=== PATIENT | female | born 1935 | race Caucasian/White ===

== ENCOUNTER 2017-12-15 21:03 | Inpatient (IN) | payer MEDICARE, OTHER ==
[2017-12-15] MEDS ORDERED: Sodium Chloride 0.9% 10 ML Syringe FLUSH PRN (21:12)
[2017-12-15] MEDS ORDERED: Sodium Chloride 0.9% 2.5 ML Syringe FLUSH PRN (21:12)
[2017-12-15] MEDS ORDERED: Albuterol/Ipratropium 3.0-0.5 MG/3 ML Neb Soln NEB ONE (21:15)
[2017-12-15] MEDS ORDERED: Sodium Chloride 0.9% 1,000 ML IV SCH (21:15)
--- NOTE | 2017-12-15 21:16 | EDM.PDOC ---
ED HPI GENERAL MEDICAL PROBLEM - General Chief Complaint: Respiratory Problem Stated Complaint: SHORT OF BREATH/DEHYDRATED Time Seen by Provider: 12/15/17 21:08 - History of Present Illness INITIAL COMMENTS - FREE TEXT/NARRATIVE: HISTORY AND PHYSICAL: History of present illness: Patient's an 82-year-old female who presents with concern of shortness of breath and cold symptoms over last 2-3 days she states she has some chronic intermittent shortness of breath which he uses an inhaler this is been challenging per family and this is usually only at night. She denies any fever she denies chest pain abdominal pain or other concern vomiting or diarrhea family was also concerned about possible dehydration. Review of systems: As per history of present illness and below otherwise all systems reviewed and negative. Past medical history: As per history of present illness and as reviewed below otherwise noncontributory. Surgical history: As per history of present illness and as reviewed below otherwise noncontributory. Social history: No reported history of drug or alcohol abuse. Family history: As per history of present illness and as reviewed below otherwise noncontributory. Physical exam: HEENT: Atraumatic, normocephalic, pupils reactive, negative for conjunctival pallor or scleral icterus, mucous membranes dry, throat clear, neck supple, nontender, trachea midline. Lungs: Coarse bilaterally with occasional rhonchi and end expiratory wheezing breath sounds equal bilaterally, chest nontender. Heart: S1S2, irregular negative for clicks, rubs, or JVD. Abdomen: Soft, nondistended, nontender. Negative for masses or hepatosplenomegaly. Negative for costovertebral tenderness. Pelvis: Stable nontender. Genitourinary: Deferred. Rectal: Deferred. Extremities: Atraumatic, negative for cords or calf pain. Neurovascular unremarkable. Neuro: Awake, alert, oriented. Follows commands and moves all extremities limited but grossly nonfocal exam Diagnostics: CBC CMP troponin blood culture 2 influenza screen UA urine culture chest x-ray EKG Therapeutics: IV O2 monitor albuterol ipratropium nebulizer Impression: #1 dyspnea #2 generalized weakness #3 dehydration #4 atrial fibrillation with rapid ventricular response #5 history of lymphoma Definitive disposition and diagnosis as appropriate pending reevaluation and review of above. lower abdomen Pain Score (Numeric/FACES): 6 - Related Data Allergies Allergy/AdvReac Type Severity Reaction Status Date / Time No Known Allergies Allergy Verified 12/15/17 21:12 Home Meds: Home Meds Calcium Carbonate [Calcium] 1 tab PO BID 12/15/17 [History] Doxepin [SINEquan] 50 mg PO DAILY 12/15/17 [History] FLUoxetine [PROzac] 25 mg PO DAILY 12/15/17 [History] Metoprolol Succinate [Toprol XL] 25 mg PO DAILY 12/15/17 [History] Warfarin [Coumadin] 5 mg PO DAILY 12/15/17 [History] atorvaSTATin [Lipitor] 20 mg PO DAILY 12/15/17 [History] ED ROS GENERAL - Review of Systems Review Of Systems: ROS reveals no pertinent complaints other than HPI. ED EXAM, GENERAL - Physical Exam Exam: Not Obtained (See dictation) Course - Vital Signs Last Recorded V/S: Last Vital Signs Temp 37.1 C 12/15/17 22:57 Pulse 90 12/15/17 22:57 Resp 28 H 12/15/17 22:57 BP 119/70 12/15/17 22:57 Pulse Ox 96 12/15/17 22:57 - Orders/Labs/Meds Orders: Active Orders 24 hr Category Date Time Status Cardiac Monitoring [RC] . DIRECTED Care 12/15/17 21:11 Active EKG Documentation Completion [RC] STAT Care 12/15/17 21:11 Active Oxygen Therapy, ED [RC] ASDIRECTED Care 12/15/17 21:11 Active Pulse Oximetry [RC] ASDIRECTED Care 12/15/17 21:11 Active RT Aerosol Therapy [RC] ASDIRECTED Care 12/15/17 21:15 Active Chest 1V Frontal [CR] Stat Exams 12/15/17 21:11 Taken CULTURE BLOOD [BC] Stat Lab 12/15/17 21:25 Received CULTURE BLOOD [BC] Stat Lab 12/15/17 21:25 Received CULTURE URINE [RM] Stat Lab 12/15/17 22:15 Ordered INFLUENZA A+B AG SCREEN [RM] Stat Lab 12/15/17 22:15 Ordered UA W/MICROSCOPIC [URIN] Stat Lab 12/15/17 22:15 Ordered Sodium Chloride 0.9% [Normal Saline] 1,000 ml Med 12/15/17 21:15 Active IV STAT Sodium Chloride 0.9% [Saline Flush] Med 12/15/17 21:12 Active 10 ml FLUSH ASDIRECTED PRN Sodium Chloride 0.9% [Saline Flush] Med 12/15/17 21:12 Active 2.5 ml FLUSH ASDIRECTED PRN Blood Culture x2 Reflex Set [OM.PC] Stat Oth 12/15/17 21:11 Ordered Saline Lock Insert [OM.PC] Stat Oth 12/15/17 21:11 Ordered Medication Orders Sodium Chloride (Normal Saline) 1,000 mls @ 125 mls/hr IV STAT KELLEY Last Admin: 12/15/17 21:25 Dose: 125 mls/hr Sodium Chloride (Saline Flush) 10 ml FLUSH ASDIRECTED PRN PRN Reason: Keep Vein Open Sodium Chloride (Saline Flush) 2.5 ml FLUSH ASDIRECTED PRN PRN Reason: Keep Vein Open Labs: Laboratory Tests 12/15/17 12/15/17 12/15/17 Range/Units 21:25 21:25 21:25 WBC 5.75 (4.0-11.0) K/uL RBC 5.23 (4.30-5.90) M/uL Hgb 16.1 H (12.0-16.0) g/dL Hct 48.6 H (36.0-46.0) % MCV 92.9 (80.0-98.0) fL MCH 30.8 (27.0-32.0) pg MCHC 33.1 (31.0-37.0) g/dL RDW Std Deviation 47.6 (28.0-62.0) fl RDW Coeff of Xiomy 14 (11.0-15.0) % Plt Count 184 (150-400) K/uL MPV 10.00 (7.40-12.00) fL Neut % (Auto) 59.4 (48.0-80.0) % Lymph % (Auto) 22.6 (16.0-40.0) % [place] % (Auto) 17.0 H (0.0-15.0) % Eos % (Auto) 0.3 (0.0-7.0) % Baso % (Auto) 0.7 (0.0-1.5) % Neut # (Auto) 3.4 (1.4-5.7) K/uL Lymph # (Auto) 1.3 (0.6-2.4) K/uL [place] # (Auto) 1.0 H (0.0-0.8) K/uL Eos # (Auto) 0.0 (0.0-0.7) K/uL Baso # (Auto) 0.0 (0.0-0.1) K/uL Nucleated RBC % 0.0 /100WBC Nucleated RBCs # 0 K/uL INR 1.97 Sodium 133 L (136-145) mmol/L Potassium 4.1 (3.5-5.1) mmol/L Chloride 98 (98-107) mmol/L Carbon Dioxide 25.0 (21.0-32.0) mmol/L BUN 18 (7.0-18.0) mg/dL Creatinine 1.1 H (0.6-1.0) mg/dL Est Cr Clr Drug Dosing 36.28 mL/min Estimated GFR (MDRD) 47.4 ml/min Glucose 144 H (74-106) mg/dL Calcium 9.0 (8.5-10.1) mg/dL Total Bilirubin 0.7 (0.2-1.0) mg/dL AST 33 (15-37) IU/L ALT 23 (14-63) IU/L Alkaline Phosphatase 154 H (46-116) U/L Troponin I < 0.050 (0.000-0.056) ng/mL B-Natriuretic Peptide (<100) PG/ML Total Protein 7.4 (6.4-8.2) g/dL Albumin 3.9 (3.4-5.0) g/dL Globulin 3.5 (2.0-3.5) g/dL Albumin/Globulin Ratio 1.1 L (1.3-2.8) Urine Color Urine Appearance Urine pH (5.0-8.0) Ur Specific [place] (1.001-1.035) Urine Protein (NEGATIVE) mg/dL Urine Glucose (UA) (NEGATIVE) mg/dL Urine Ketones (NEGATIVE) mg/dL Urine Occult Blood (NEGATIVE) Urine Nitrite (NEGATIVE) Urine Bilirubin (NEGATIVE) Urine Urobilinogen (<2.0) EU/dL Ur Leukocyte Esterase (NEGATIVE) Urine RBC (0-2/HPF) Urine WBC (0-5/HPF) Ur Epithelial Cells (NONE-FEW) Urine Bacteria (NEGATIVE) 03/31/18 03/31/18 Range/Units 21:25 22:15 WBC (4.0-11.0) K/uL RBC (4.30-5.90) M/uL Hgb (12.0-16.0) g/dL Hct (36.0-46.0) % MCV (80.0-98.0) fL MCH (27.0-32.0) pg MCHC (31.0-37.0) g/dL RDW Std Deviation (28.0-62.0) fl RDW Coeff of Xiomy (11.0-15.0) % Plt Count (150-400) K/uL MPV (7.40-12.00) fL Neut % (Auto) (48.0-80.0) % Lymph % (Auto) (16.0-40.0) % [place] % (Auto) (0.0-15.0) % Eos % (Auto) (0.0-7.0) % Baso % (Auto) (0.0-1.5) % Neut # (Auto) (1.4-5.7) K/uL Lymph # (Auto) (0.6-2.4) K/uL [place] # (Auto) (0.0-0.8) K/uL Eos # (Auto) (0.0-0.7) K/uL Baso # (Auto) (0.0-0.1) K/uL Nucleated RBC % /100WBC Nucleated RBCs # K/uL INR Sodium (136-145) mmol/L Potassium (3.5-5.1) mmol/L Chloride (98-107) mmol/L Carbon Dioxide (21.0-32.0) mmol/L BUN (7.0-18.0) mg/dL Creatinine (0.6-1.0) mg/dL Est Cr Clr Drug Dosing mL/min Estimated GFR (MDRD) ml/min Glucose (74-106) mg/dL Calcium (8.5-10.1) mg/dL Total Bilirubin (0.2-1.0) mg/dL AST (15-37) IU/L ALT (14-63) IU/L Alkaline Phosphatase (46-116) U/L Troponin I (0.000-0.056) ng/mL B-Natriuretic Peptide 187 H (<100) PG/ML Total Protein (6.4-8.2) g/dL Albumin (3.4-5.0) g/dL Globulin (2.0-3.5) g/dL Albumin/Globulin Ratio (1.3-2.8) Urine Color DARK YELLOW Urine Appearance HAZY Urine pH 5.0 (5.0-8.0) Ur Specific [place] >= 1.030 (1.001-1.035) Urine Protein TRACE (NEGATIVE) mg/dL Urine Glucose (UA) NEGATIVE (NEGATIVE) mg/dL Urine Ketones TRACE H (NEGATIVE) mg/dL Urine Occult Blood NEGATIVE (NEGATIVE) Urine Nitrite NEGATIVE (NEGATIVE) Urine Bilirubin NEGATIVE (NEGATIVE) Urine Urobilinogen 0.2 (<2.0) EU/dL Ur Leukocyte Esterase MODERATE (NEGATIVE) Urine RBC 1-2 (0-2/HPF) Urine WBC 3-5 (0-5/HPF) Ur Epithelial Cells FEW (NONE-FEW) Urine Bacteria FEW (NEGATIVE) Meds: Medications Generic Name Dose Route Start Last Admin Trade Name Walt PRN Reason Stop Dose Admin Sodium Chloride 1,000 mls @ 125 mls/hr 12/15/17 21:15 12/15/17 21:25 Normal Saline IV 125 mls/hr STAT KELLEY Administration Sodium Chloride 10 ml 12/15/17 21:12 Saline Flush FLUSH ASDIRECTED PRN Keep Vein Open Sodium Chloride 2.5 ml 12/15/17 21:12 Saline Flush FLUSH ASDIRECTED PRN Keep Vein Open Discontinued Medications Generic Name Dose Route Start Last Admin Trade Name Walt PRN Reason Stop Dose Admin Albuterol/Ipratropium 3 ml 12/15/17 21:15 12/15/17 21:22 Duoneb 3.0-0.5 Mg/3 Ml NEB 12/15/17 21:16 3 ml ONETIME ONE Administration Diltiazem HCl 20 mg 12/15/17 22:48 12/15/17 22:52 Diltiazem IVPUSH 12/15/17 22:49 20 mg ONETIME ONE Administration Diltiazem HCl Confirm 12/15/17 22:47 12/15/17 22:53 Diltiazem Administered 12/15/17 22:48 Not Given Dose 25 mg .ROUTE .STK-MED ONE Departure - Departure Time of Disposition: 23:03 Disposition: Refer to Observation Condition: Fair Clinical Impression: Dyspnea, Fibrillation, atrial, History of lymphoma - Discharge Information Forms: ED Department Discharge - My Orders Last 24 Hours: My Active Orders 12/15/17 21:11 Cardiac Monitoring [RC] . DIRECTED EKG Documentation Completion [RC] STAT Oxygen Therapy, ED [RC] ASDIRECTED Pulse Oximetry [RC] ASDIRECTED Chest 1V Frontal [CR] Stat Blood Culture x2 Reflex Set [OM.PC] Stat Saline Lock Insert [OM.PC] Stat 12/15/17 21:12 Sodium Chloride 0.9% [Saline Flush] 10 ml FLUSH ASDIRECTED PRN Sodium Chloride 0.9% [Saline Flush] 2.5 ml FLUSH ASDIRECTED PRN 12/15/17 21:15 RT Aerosol Therapy [RC] ASDIRECTED Sodium Chloride 0.9% [Normal Saline] 1,000 ml IV STAT 12/15/17 21:25 CULTURE BLOOD [BC] Stat CULTURE BLOOD [BC] Stat 12/15/17 22:15 CULTURE URINE [RM] Stat INFLUENZA A+B AG SCREEN [RM] Stat UA W/MICROSCOPIC [URIN] Stat - Assessment/Plan Last 24 Hours: My Active Orders 12/15/17 21:11 Cardiac Monitoring [RC] . DIRECTED EKG Documentation Completion [RC] STAT Oxygen Therapy, ED [RC] ASDIRECTED Pulse Oximetry [RC] ASDIRECTED Chest 1V Frontal [CR] Stat Blood Culture x2 Reflex Set [OM.PC] Stat Saline Lock Insert [OM.PC] Stat 12/15/17 21:12 Sodium Chloride 0.9% [Saline Flush] 10 ml FLUSH ASDIRECTED PRN Sodium Chloride 0.9% [Saline Flush] 2.5 ml FLUSH ASDIRECTED PRN 12/15/17 21:15 RT Aerosol Therapy [RC] ASDIRECTED Sodium Chloride 0.9% [Normal Saline] 1,000 ml IV STAT 12/15/17 21:25 CULTURE BLOOD [BC] Stat CULTURE BLOOD [BC] Stat 12/15/17 22:15 CULTURE URINE [RM] Stat INFLUENZA A+B AG SCREEN [RM] Stat UA W/MICROSCOPIC [URIN] Stat
[2017-12-15 21:56] LABS: CHLORIDE,CL 98 mmol/L (98-107); SODIUM,NA 133 mmol/L (136-145)
[2017-12-15] MEDS ORDERED: Diltiazem 25 MG/5 ML SDV ONE (22:47)
[2017-12-15] MEDS ORDERED: Diltiazem 25 MG/5 ML SDV IVPUSH ONE (22:48)
[2017-12-15] MEDS ORDERED: Acetaminophen 325 MG Tab PO PRN (23:38)
[2017-12-15] MEDS ORDERED: predniSONE 20 MG Tab PO ONE (23:41)
[2017-12-15] MEDS ORDERED: Pantoprazole 40 MG Vial IVPUSH ONE (23:41)
--- NOTE | 2017-12-15 23:48 | PCM.HP ---
H&P History of Present Illness - General Admit Problem/Dx: Admission Diagnosis/Problem Admission Diagnosis/Problem Dyspnea - History of Present Illness Initial Comments - Free Text/Narative: 82 yo female with pmh of nonhodgkin's lymphoma, atrial fibrillation on anticoagulation who presents to the ED with complaint of cough and wheezing. She also reported an episode neck pain that radiates to the arm. She reports epigastric pain as well. She does have some shortness of breath with walking. She denies any fevers or blood in stool. In the ED she was noted to have a heart rate of 120-130s bpm which decreased to the 80s with 20mg of diltiazem. lower abdomen Pain Score (Numeric/FACES): 6 - Related Data Allergies/Adverse Reactions: Allergies Allergy/AdvReac Type Severity Reaction Status Date / Time No Known Allergies Allergy Verified 12/15/17 21:12 Home Medications: Home Meds Calcium Carbonate [Calcium] 1 tab PO BID 12/15/17 [History] Doxepin [SINEquan] 50 mg PO DAILY 12/15/17 [History] FLUoxetine [PROzac] 25 mg PO DAILY 12/15/17 [History] Metoprolol Succinate [Toprol XL] 25 mg PO DAILY 12/15/17 [History] Warfarin [Coumadin] 5 mg PO DAILY 12/15/17 [History] atorvaSTATin [Lipitor] 20 mg PO DAILY 12/15/17 [History] Past Medical History HEENT History: Reports: Impaired Vision Cardiovascular History: Reports: Afib, High Cholesterol, Hypertension [employer] History: Reports: Endocrine/Metabolic History: Reports: Other (See Below) Other Endocrine/Metabolic History: parathyroid Oncologic (Cancer) History: Reports: Basal Cell Carcinoma, Lymphoma, Squamous Cell Carcinoma Other Oncologic History: currenlty has lymphoma Dermatologic History: Reports: Other (See Below) - Infectious Disease History Infectious Disease History: Reports: Measles - Past Surgical History GI Surgical History: Reports: Appendectomy Female Surgical History: Reports: Hysterectomy Social & Family History - Family History Family Medical History: Noncontributory - Tobacco Use Smoking Status *Q: Never Smoker Second Hand Smoke Exposure: No - Caffeine Use Caffeine Use: Reports: Coffee - Recreational Drug Use Recreational Drug Use: No H&P Review of Systems - Review of Systems: Review Of Systems: ROS reveals no pertinent complaints other than HPI. Exam - Exam Exam: See Below - Vital Signs Vital Signs: Last Vital Signs Temp 37.1 C 12/15/17 22:57 Pulse 90 12/15/17 22:57 Resp 28 H 12/15/17 22:57 BP 119/70 12/15/17 22:57 Pulse Ox 96 12/15/17 22:57 Weight: 66.224 kg - Exam General: Alert, Oriented Neck: Supple, Trachea Midline Lungs: Normal Respiratory Effort, Wheezing Cardiovascular: Regular Rate, Regular Rhythm GI/Abdominal Exam: Normal Bowel Sounds, Soft, Non-Tender, No Distention Extremities: Non-Tender - Patient Data Lab Results Last 24 hrs: Laboratory Results - last 24 hr 12/15/17 12/15/17 12/15/17 Range/Units 21:25 21:25 21:25 WBC 5.75 (4.0-11.0) K/uL RBC 5.23 (4.30-5.90) M/uL Hgb 16.1 H (12.0-16.0) g/dL Hct 48.6 H (36.0-46.0) % MCV 92.9 (80.0-98.0) fL MCH 30.8 (27.0-32.0) pg MCHC 33.1 (31.0-37.0) g/dL RDW Std Deviation 47.6 (28.0-62.0) fl RDW Coeff of Xiomy 14 (11.0-15.0) % Plt Count 184 (150-400) K/uL MPV 10.00 (7.40-12.00) fL Neut % (Auto) 59.4 (48.0-80.0) % Lymph % (Auto) 22.6 (16.0-40.0) % [place] % (Auto) 17.0 H (0.0-15.0) % Eos % (Auto) 0.3 (0.0-7.0) % Baso % (Auto) 0.7 (0.0-1.5) % Neut # (Auto) 3.4 (1.4-5.7) K/uL Lymph # (Auto) 1.3 (0.6-2.4) K/uL [place] # (Auto) 1.0 H (0.0-0.8) K/uL Eos # (Auto) 0.0 (0.0-0.7) K/uL Baso # (Auto) 0.0 (0.0-0.1) K/uL Nucleated RBC % 0.0 /100WBC Nucleated RBCs # 0 K/uL INR 1.97 Sodium 133 L (136-145) mmol/L Potassium 4.1 (3.5-5.1) mmol/L Chloride 98 (98-107) mmol/L Carbon Dioxide 25.0 (21.0-32.0) mmol/L BUN 18 (7.0-18.0) mg/dL Creatinine 1.1 H (0.6-1.0) mg/dL Est Cr Clr Drug Dosing 36.28 mL/min Estimated GFR (MDRD) 47.4 ml/min Glucose 144 H (74-106) mg/dL Calcium 9.0 (8.5-10.1) mg/dL Total Bilirubin 0.7 (0.2-1.0) mg/dL AST 33 (15-37) IU/L ALT 23 (14-63) IU/L Alkaline Phosphatase 154 H (46-116) U/L Troponin I < 0.050 (0.000-0.056) ng/mL B-Natriuretic Peptide (<100) PG/ML Total Protein 7.4 (6.4-8.2) g/dL Albumin 3.9 (3.4-5.0) g/dL Globulin 3.5 (2.0-3.5) g/dL Albumin/Globulin Ratio 1.1 L (1.3-2.8) Urine Color Urine Appearance Urine pH (5.0-8.0) Ur Specific [place] (1.001-1.035) Urine Protein (NEGATIVE) mg/dL Urine Glucose (UA) (NEGATIVE) mg/dL Urine Ketones (NEGATIVE) mg/dL Urine Occult Blood (NEGATIVE) Urine Nitrite (NEGATIVE) Urine Bilirubin (NEGATIVE) Urine Urobilinogen (<2.0) EU/dL Ur Leukocyte Esterase (NEGATIVE) Urine RBC (0-2/HPF) Urine WBC (0-5/HPF) Ur Epithelial Cells (NONE-FEW) Urine Bacteria (NEGATIVE) 12/15/17 12/15/17 Range/Units 21:25 22:15 WBC (4.0-11.0) K/uL RBC (4.30-5.90) M/uL Hgb (12.0-16.0) g/dL Hct (36.0-46.0) % MCV (80.0-98.0) fL MCH (27.0-32.0) pg MCHC (31.0-37.0) g/dL RDW Std Deviation (28.0-62.0) fl RDW Coeff of Xiomy (11.0-15.0) % Plt Count (150-400) K/uL MPV (7.40-12.00) fL Neut % (Auto) (48.0-80.0) % Lymph % (Auto) (16.0-40.0) % [place] % (Auto) (0.0-15.0) % Eos % (Auto) (0.0-7.0) % Baso % (Auto) (0.0-1.5) % Neut # (Auto) (1.4-5.7) K/uL Lymph # (Auto) (0.6-2.4) K/uL [place] # (Auto) (0.0-0.8) K/uL Eos # (Auto) (0.0-0.7) K/uL Baso # (Auto) (0.0-0.1) K/uL Nucleated RBC % /100WBC Nucleated RBCs # K/uL INR Sodium (136-145) mmol/L Potassium (3.5-5.1) mmol/L Chloride (98-107) mmol/L Carbon Dioxide (21.0-32.0) mmol/L BUN (7.0-18.0) mg/dL Creatinine (0.6-1.0) mg/dL Est Cr Clr Drug Dosing mL/min Estimated GFR (MDRD) ml/min Glucose (74-106) mg/dL Calcium (8.5-10.1) mg/dL Total Bilirubin (0.2-1.0) mg/dL AST (15-37) IU/L ALT (14-63) IU/L Alkaline Phosphatase (46-116) U/L Troponin I (0.000-0.056) ng/mL B-Natriuretic Peptide 187 H (<100) PG/ML Total Protein (6.4-8.2) g/dL Albumin (3.4-5.0) g/dL Globulin (2.0-3.5) g/dL Albumin/Globulin Ratio (1.3-2.8) Urine Color DARK YELLOW Urine Appearance HAZY Urine pH 5.0 (5.0-8.0) Ur Specific [place] >= 1.030 (1.001-1.035) Urine Protein TRACE (NEGATIVE) mg/dL Urine Glucose (UA) NEGATIVE (NEGATIVE) mg/dL Urine Ketones TRACE H (NEGATIVE) mg/dL Urine Occult Blood NEGATIVE (NEGATIVE) Urine Nitrite NEGATIVE (NEGATIVE) Urine Bilirubin NEGATIVE (NEGATIVE) Urine Urobilinogen 0.2 (<2.0) EU/dL Ur Leukocyte Esterase MODERATE (NEGATIVE) Urine RBC 1-2 (0-2/HPF) Urine WBC 3-5 (0-5/HPF) Ur Epithelial Cells FEW (NONE-FEW) Urine Bacteria FEW (NEGATIVE) Result Diagrams: 12/15/17 21:25 12/15/17 21:25 Dat Results Last 24 hrs: Microbiology 12/15/17 22:15 Influenza Type A Antigen Screen - Final Nasopharyngeal Swab NEGATIVE INFLUENZA A VIRUS AG Influenza Type B Antigen Screen - Final NEGATIVE INFLUENZA B VIRUS AG Problem List Initiated/Reviewed/Updated: Yes Orders Last 24hrs: Active Orders 24 hr Category Date Time Status Patient Status [ADT] Stat ADT 12/15/17 23:04 Active Cardiac Monitoring [RC] . DIRECTED Care 12/15/17 21:11 Active EKG Documentation Completion [RC] STAT Care 12/15/17 21:11 Active Oxygen Therapy [RC] PRN Care 12/15/17 23:38 Active Oxygen Therapy, ED [RC] ASDIRECTED Care 12/15/17 21:11 Active Pulse Oximetry [RC] ASDIRECTED Care 12/15/17 21:11 Active RT Aerosol Therapy [RC] ASDIRECTED Care 12/15/17 21:15 Active RT Aerosol Therapy [RC] ASDIRECTED Care 12/15/17 23:39 Active Up ad Glo [RC] ASDIRECTED Care 12/15/17 23:38 Active VTE/DVT Education [RC] PER UNIT ROUTINE Care 12/15/17 23:38 Active Vital Signs [RC] Q4H Care 12/15/17 23:38 Active Regular Diet [DIET] Diet 12/15/17 Breakfast Active Chest 1V Frontal [CR] Stat Exams 12/15/17 21:11 Taken BASIC METABOLIC PANEL,BMP [CHEM] AM Lab 12/16/17 05:11 Ordered CBC W/O DIFF,HEMOGRAM [HEME] AM Lab 12/16/17 05:11 Ordered CULTURE BLOOD [BC] Stat Lab 12/15/17 21:25 Received CULTURE BLOOD [BC] Stat Lab 12/15/17 21:25 Received CULTURE URINE [RM] Stat Lab 12/15/17 22:15 Ordered INFLUENZA A+B AG SCREEN [RM] Stat Lab 12/15/17 22:15 Ordered TROPONIN I [CHEM] Q6H Lab 12/16/17 04:00 Ordered TROPONIN I [CHEM] Q6H Lab 12/16/17 10:00 Ordered UA W/MICROSCOPIC [URIN] Stat Lab 12/15/17 22:15 Ordered Acetaminophen [Tylenol] Med 12/15/17 23:38 Ordered 650 mg PO Q4H PRN Albuterol/Ipratropium [DuoNeb 3.0-0.5 MG/3 ML] Med 12/16/17 00:00 Ordered 3 ml NEB Q6HRRT Doxepin [SINEquan] Med 12/16/17 09:00 Ordered 50 mg PO DAILY FLUoxetine [PROzac] Med 12/16/17 09:00 Ordered 25 mg PO DAILY Metoprolol Succinate [Toprol XL] Med 12/16/17 09:00 Ordered 25 mg PO DAILY Pantoprazole [ProTONIX IV] Med 12/15/17 23:41 Once 40 mg IVPUSH NOW ONE Sodium Chloride 0.9% [Normal Saline] 1,000 ml Med 12/15/17 21:15 Active IV STAT Sodium Chloride 0.9% [Saline Flush] Med 12/15/17 21:12 Active 10 ml FLUSH ASDIRECTED PRN Sodium Chloride 0.9% [Saline Flush] Med 12/15/17 21:12 Active 2.5 ml FLUSH ASDIRECTED PRN Warfarin [Coumadin] Med 12/16/17 09:00 Ordered 5 mg PO DAILY atorvaSTATin [Lipitor] Med 12/16/17 09:00 Ordered 20 mg PO DAILY predniSONE Med 12/15/17 23:41 Once 40 mg PO ONETIME ONE Blood Culture x2 Reflex Set [OM.PC] Stat Oth 12/15/17 21:11 Ordered Saline Lock Insert [OM.PC] Stat Oth 12/15/17 21:11 Ordered Sequential Compression Device [OM.PC] Per Unit Routine Oth 12/15/17 23:38 Ordered Resuscitation Status Routine Resus Stat 12/15/17 23:38 Ordered Medication Orders Acetaminophen (Tylenol) 650 mg PO Q4H PRN PRN Reason: Pain (Mild 1-3)/fever Albuterol/Ipratropium (Duoneb 3.0-0.5 Mg/3 Ml) 3 ml NEB Q6HRRT KELLEY Atorvastatin Calcium (Lipitor) 20 mg PO DAILY [facility] Fluoxetine HCl (Prozac) 25 mg PO DAILY [facility] Sodium Chloride (Normal Saline) 1,000 mls @ 125 mls/hr IV STAT [facility] Last Admin: 12/15/17 21:25 Dose: 125 mls/hr Metoprolol Succinate (Toprol Xl) 25 mg PO DAILY [facility] Non-Formulary Medication (Doxepin [Sinequan]) 50 mg PO DAILY [facility] Pantoprazole Sodium (Protonix Iv) 40 mg IVPUSH NOW ONE Stop: 12/15/17 23:42 Prednisone (Prednisone) 40 mg PO ONETIME ONE Stop: 12/15/17 23:42 Sodium Chloride (Saline Flush) 10 ml FLUSH ASDIRECTED PRN PRN Reason: Keep Vein Open Sodium Chloride (Saline Flush) 2.5 ml FLUSH ASDIRECTED PRN PRN Reason: Keep Vein Open Warfarin Sodium (Coumadin) 5 mg PO DAILY [facility] Assessment/Plan Comment:: 82 yo female who presents with wheezing, chest pain and atrial fibrillation with RVR. Will observe overnight Acute bronchitis: treating with duonebs and prednisone Chest pain: trending cardiac enzymes will monitor on telemetry Atrial fibrillation: currently rate controlled after IV diltiazem
[2017-12-16] MEDS: Albuterol/Ipratropium 3.0-0.5 MG/3 ML Neb Soln NEB SCH ×4 (01:12→17:35)
[2017-12-16] MEDS ORDERED: guaiFENesin/Dextromethorphan 100-10 MG/5 ML Soln 10 ML Cup PO PRN (02:02)
[2017-12-16] MEDS: Sodium Chloride 0.9% 1,000 ML IV SCH ×2 (06:45→15:07)
[2017-12-16] MEDS ORDERED: Diltiazem 25 MG/5 ML SDV IVPUSH ONE (07:10)
[2017-12-16] MEDS ORDERED: Metoprolol Succinate 25 MG Tab.ER PO SCH (09:00)
[2017-12-16] MEDS: atorvaSTATin 20 MG Tab PO SCH (09:38)
[2017-12-16] MEDS: FLUoxetine 20 MG Cap PO SCH (09:38)
[2017-12-16] MEDS ORDERED: Warfarin 5 MG Tab PO SCH (14:00)
[2017-12-16] MEDS ORDERED: Metoprolol Succinate 25 MG Tab.ER PO ONE (14:17)
[2017-12-16] MEDS ORDERED: predniSONE 10 MG Tab PO ONE (14:19)
--- NOTE | 2017-12-16 14:24 | PCM.PN ---
- Review of Systems Systems Review Comment:: reports chest congestion is loosening, more productive cough, no chest pain - Patient Data Vitals - Most Recent: Last Vital Signs Temp 36.4 C 12/16/17 12:07 Pulse 97 12/16/17 12:07 Resp 18 12/16/17 12:07 BP 105/61 12/16/17 12:07 Pulse Ox 94 L 12/16/17 12:07 Weight - Most Recent: 66.224 kg I&O - Last 24 Hours: Intake & Output 12/15/17 12/16/17 12/16/17 22:59 06:59 14:59 Intake Total 1299 Output Total 600 Balance 699 Lab Results Last 24 Hours: Laboratory Results - last 24 hr 12/15/17 12/15/17 12/15/17 Range/Units 21:25 21:25 21:25 WBC 5.75 (4.0-11.0) K/uL RBC 5.23 (4.30-5.90) M/uL Hgb 16.1 H (12.0-16.0) g/dL Hct 48.6 H (36.0-46.0) % MCV 92.9 (80.0-98.0) fL MCH 30.8 (27.0-32.0) pg MCHC 33.1 (31.0-37.0) g/dL RDW Std Deviation 47.6 (28.0-62.0) fl RDW Coeff of Xiomy 14 (11.0-15.0) % Plt Count 184 (150-400) K/uL MPV 10.00 (7.40-12.00) fL Neut % (Auto) 59.4 (48.0-80.0) % Lymph % (Auto) 22.6 (16.0-40.0) % [place] % (Auto) 17.0 H (0.0-15.0) % Eos % (Auto) 0.3 (0.0-7.0) % Baso % (Auto) 0.7 (0.0-1.5) % Neut # (Auto) 3.4 (1.4-5.7) K/uL Lymph # (Auto) 1.3 (0.6-2.4) K/uL [place] # (Auto) 1.0 H (0.0-0.8) K/uL Eos # (Auto) 0.0 (0.0-0.7) K/uL Baso # (Auto) 0.0 (0.0-0.1) K/uL Nucleated RBC % 0.0 /100WBC Nucleated RBCs # 0 K/uL INR 1.97 Sodium 133 L (136-145) mmol/L Potassium 4.1 (3.5-5.1) mmol/L Chloride 98 (98-107) mmol/L Carbon Dioxide 25.0 (21.0-32.0) mmol/L BUN 18 (7.0-18.0) mg/dL Creatinine 1.1 H (0.6-1.0) mg/dL Est Cr Clr Drug Dosing 36.28 mL/min Estimated GFR (MDRD) 47.4 ml/min Glucose 144 H (74-106) mg/dL Calcium 9.0 (8.5-10.1) mg/dL Total Bilirubin 0.7 (0.2-1.0) mg/dL AST 33 (15-37) IU/L ALT 23 (14-63) IU/L Alkaline Phosphatase 154 H (46-116) U/L Troponin I < 0.050 (0.000-0.056) ng/mL B-Natriuretic Peptide (<100) PG/ML Total Protein 7.4 (6.4-8.2) g/dL Albumin 3.9 (3.4-5.0) g/dL Globulin 3.5 (2.0-3.5) g/dL Albumin/Globulin Ratio 1.1 L (1.3-2.8) Urine Color Urine Appearance Urine pH (5.0-8.0) Ur Specific Pep (1.001-1.035) Urine Protein (NEGATIVE) mg/dL Urine Glucose (UA) (NEGATIVE) mg/dL Urine Ketones (NEGATIVE) mg/dL Urine Occult Blood (NEGATIVE) Urine Nitrite (NEGATIVE) Urine Bilirubin (NEGATIVE) Urine Urobilinogen (<2.0) EU/dL Ur Leukocyte Esterase (NEGATIVE) Urine RBC (0-2/HPF) Urine WBC (0-5/HPF) Ur Epithelial Cells (NONE-FEW) Urine Bacteria (NEGATIVE) 12/15/17 12/15/17 12/16/17 Range/Units 21:25 22:15 04:15 WBC 4.48 (4.0-11.0) K/uL RBC 4.69 (4.30-5.90) M/uL Hgb 14.1 (12.0-16.0) g/dL Hct 44.2 (36.0-46.0) % MCV 94.2 (80.0-98.0) fL MCH 30.1 (27.0-32.0) pg MCHC 31.9 (31.0-37.0) g/dL RDW Std Deviation 48.6 (28.0-62.0) fl RDW Coeff of Xiomy 14 (11.0-15.0) % Plt Count 195 (150-400) K/uL MPV 10.00 (7.40-12.00) fL Neut % (Auto) (48.0-80.0) % Lymph % (Auto) (16.0-40.0) % [place] % (Auto) (0.0-15.0) % Eos % (Auto) (0.0-7.0) % Baso % (Auto) (0.0-1.5) % Neut # (Auto) (1.4-5.7) K/uL Lymph # (Auto) (0.6-2.4) K/uL [place] # (Auto) (0.0-0.8) K/uL Eos # (Auto) (0.0-0.7) K/uL Baso # (Auto) (0.0-0.1) K/uL Nucleated RBC % 0.0 /100WBC Nucleated RBCs # 0 K/uL INR Sodium (136-145) mmol/L Potassium (3.5-5.1) mmol/L Chloride (98-107) mmol/L Carbon Dioxide (21.0-32.0) mmol/L BUN (7.0-18.0) mg/dL Creatinine (0.6-1.0) mg/dL Est Cr Clr Drug Dosing mL/min Estimated GFR (MDRD) ml/min Glucose (74-106) mg/dL Calcium (8.5-10.1) mg/dL Total Bilirubin (0.2-1.0) mg/dL AST (15-37) IU/L ALT (14-63) IU/L Alkaline Phosphatase (46-116) U/L Troponin I (0.000-0.056) ng/mL B-Natriuretic Peptide 187 H (<100) PG/ML Total Protein (6.4-8.2) g/dL Albumin (3.4-5.0) g/dL Globulin (2.0-3.5) g/dL Albumin/Globulin Ratio (1.3-2.8) Urine Color DARK YELLOW Urine Appearance HAZY Urine pH 5.0 (5.0-8.0) Ur Specific Pep >= 1.030 (1.001-1.035) Urine Protein TRACE (NEGATIVE) mg/dL Urine Glucose (UA) NEGATIVE (NEGATIVE) mg/dL Urine Ketones TRACE H (NEGATIVE) mg/dL Urine Occult Blood NEGATIVE (NEGATIVE) Urine Nitrite NEGATIVE (NEGATIVE) Urine Bilirubin NEGATIVE (NEGATIVE) Urine Urobilinogen 0.2 (<2.0) EU/dL Ur Leukocyte Esterase MODERATE (NEGATIVE) Urine RBC 1-2 (0-2/HPF) Urine WBC 3-5 (0-5/HPF) Ur Epithelial Cells FEW (NONE-FEW) Urine Bacteria FEW (NEGATIVE) 12/16/17 12/16/17 12/16/17 Range/Units 04:15 04:15 11:15 WBC (4.0-11.0) K/uL RBC (4.30-5.90) M/uL Hgb (12.0-16.0) g/dL Hct (36.0-46.0) % MCV (80.0-98.0) fL MCH (27.0-32.0) pg MCHC (31.0-37.0) g/dL RDW Std Deviation (28.0-62.0) fl RDW Coeff of Xiomy (11.0-15.0) % Plt Count (150-400) K/uL MPV (7.40-12.00) fL Neut % (Auto) (48.0-80.0) % Lymph % (Auto) (16.0-40.0) % [place] % (Auto) (0.0-15.0) % Eos % (Auto) (0.0-7.0) % Baso % (Auto) (0.0-1.5) % Neut # (Auto) (1.4-5.7) K/uL Lymph # (Auto) (0.6-2.4) K/uL [place] # (Auto) (0.0-0.8) K/uL Eos # (Auto) (0.0-0.7) K/uL Baso # (Auto) (0.0-0.1) K/uL Nucleated RBC % /100WBC Nucleated RBCs # K/uL INR Sodium 137 (136-145) mmol/L Potassium 3.9 (3.5-5.1) mmol/L Chloride 101 (98-107) mmol/L Carbon Dioxide 22.8 (21.0-32.0) mmol/L BUN 15 (7.0-18.0) mg/dL Creatinine 1.0 (0.6-1.0) mg/dL Est Cr Clr Drug Dosing 39.90 mL/min Estimated GFR (MDRD) 53.0 ml/min Glucose 164 H (74-106) mg/dL Calcium 8.2 L (8.5-10.1) mg/dL Total Bilirubin (0.2-1.0) mg/dL AST (15-37) IU/L ALT (14-63) IU/L Alkaline Phosphatase (46-116) U/L Troponin I < 0.050 < 0.050 (0.000-0.056) ng/mL B-Natriuretic Peptide (<100) PG/ML Total Protein (6.4-8.2) g/dL Albumin (3.4-5.0) g/dL Globulin (2.0-3.5) g/dL Albumin/Globulin Ratio (1.3-2.8) Urine Color Urine Appearance Urine pH (5.0-8.0) Ur Specific Pep (1.001-1.035) Urine Protein (NEGATIVE) mg/dL Urine Glucose (UA) (NEGATIVE) mg/dL Urine Ketones (NEGATIVE) mg/dL Urine Occult Blood (NEGATIVE) Urine Nitrite (NEGATIVE) Urine Bilirubin (NEGATIVE) Urine Urobilinogen (<2.0) EU/dL Ur Leukocyte Esterase (NEGATIVE) Urine RBC (0-2/HPF) Urine WBC (0-5/HPF) Ur Epithelial Cells (NONE-FEW) Urine Bacteria (NEGATIVE) Dat Results Last 24 Hours: Microbiology 12/15/17 22:15 Influenza Type A Antigen Screen - Final Nasopharyngeal Swab NEGATIVE INFLUENZA A VIRUS AG Influenza Type B Antigen Screen - Final NEGATIVE INFLUENZA B VIRUS AG Med Orders - Current: Current Medications Acetaminophen (Tylenol) 650 mg PO Q4H PRN PRN Reason: Pain (Mild 1-3)/fever Albuterol/Ipratropium (Duoneb 3.0-0.5 Mg/3 Ml) 3 ml NEB Q6HRRT [facility] Last Admin: 12/16/17 11:44 Dose: 3 ml Atorvastatin Calcium (Lipitor) 20 mg PO DAILY [facility] Last Admin: 12/16/17 09:38 Dose: 20 mg Doxepin HCl (Sinequan) 50 mg PO BEDTIME [facility] Fluoxetine HCl (Prozac) 20 mg PO DAILY [facility] Last Admin: 12/16/17 09:38 Dose: 20 mg Guaifenesin/Dextromethorphan (Robitussin Dm) 10 ml PO Q6H PRN PRN Reason: Cough Sodium Chloride (Normal Saline) 1,000 mls @ 125 mls/hr IV ASDIRECTED [facility] Last Admin: 12/16/17 06:45 Dose: 125 mls/hr Metoprolol Succinate (Toprol Xl) 25 mg PO DAILY [facility] Last Admin: 12/16/17 10:25 Dose: 25 mg Sodium Chloride (Saline Flush) 10 ml FLUSH ASDIRECTED PRN PRN Reason: Keep Vein Open Sodium Chloride (Saline Flush) 2.5 ml FLUSH ASDIRECTED PRN PRN Reason: Keep Vein Open Warfarin Sodium (Coumadin) 5 mg PO DAILY@1400 [facility] Discontinued Medications Albuterol/Ipratropium (Duoneb 3.0-0.5 Mg/3 Ml) 3 ml NEB ONETIME ONE Stop: 12/15/17 21:16 Last Admin: 12/15/17 21:22 Dose: 3 ml Diltiazem HCl (Diltiazem) 20 mg IVPUSH ONETIME ONE Stop: 12/15/17 22:49 Last Admin: 12/15/17 22:52 Dose: 20 mg Diltiazem HCl (Diltiazem) Confirm Administered Dose 25 mg .ROUTE .STK-MED ONE Stop: 12/15/17 22:48 Last Admin: 12/15/17 22:53 Dose: Not Given Diltiazem HCl (Diltiazem) 10 mg IVPUSH STAT ONE Stop: 12/16/17 07:11 Last Admin: 12/16/17 07:31 Dose: 10 mg Fluoxetine HCl (Prozac) 25 mg PO DAILY [facility] Last Admin: 12/16/17 10:06 Dose: Not Given Sodium Chloride (Normal Saline) 1,000 mls @ 125 mls/hr IV STAT [facility] Last Admin: 12/15/17 21:25 Dose: 125 mls/hr Pantoprazole Sodium (Protonix Iv) 40 mg IVPUSH NOW ONE Stop: 12/15/17 23:42 Last Admin: 12/16/17 00:37 Dose: 40 mg Prednisone (Prednisone) 40 mg PO ONETIME ONE Stop: 12/15/17 23:42 Last Admin: 12/16/17 00:36 Dose: 40 mg - Exam General: Alert, Oriented Lungs: Clear to Auscultation, Normal Respiratory Effort Cardiovascular: Regular Rate, Regular Rhythm GI/Abdominal Exam: Soft, Non-Tender Extremities: Non-Tender, No Pedal Edema Skin: Warm, Dry, Intact - Problem List Review Problem List Initiated/Reviewed/Updated: Yes - My Orders Last 24 Hours: My Active Orders 12/15/17 23:38 Oxygen Therapy [RC] PRN Up ad Glo [RC] ASDIRECTED VTE/DVT Education [RC] PER UNIT ROUTINE Vital Signs [RC] Q4H Acetaminophen [Tylenol] 650 mg PO Q4H PRN Sequential Compression Device [OM.PC] Per Unit Routine Resuscitation Status Routine 12/15/17 23:39 RT Aerosol Therapy [RC] ASDIRECTED 12/15/17 23:52 Telemetry Monitoring [Cardiac Monitoring] [RC] Q8H 12/16/17 00:00 Albuterol/Ipratropium [DuoNeb 3.0-0.5 MG/3 ML] 3 ml NEB Q6HRRT 12/16/17 00:30 Sodium Chloride 0.9% [Normal Saline] 1,000 ml IV ASDIRECTED 12/16/17 02:02 Dextromethorphan/guaiFENesin [Robitussin DM] 10 ml PO Q6H PRN 12/16/17 09:00 Metoprolol Succinate [Toprol XL] 25 mg PO DAILY atorvaSTATin [Lipitor] 20 mg PO DAILY 12/16/17 09:20 FLUoxetine [PROzac] 20 mg PO DAILY 12/16/17 14:00 Warfarin [Coumadin] 5 mg PO DAILY@1400 12/16/17 14:17 Metoprolol Succinate [Toprol XL] 25 mg PO ONETIME ONE 12/16/17 21:00 Doxepin [SINEquan] 50 mg PO BEDTIME 12/17/17 09:00 Metoprolol Succinate [Toprol XL] 50 mg PO DAILY - Plan Plan:: 82 yo female who presents with wheezing, chest pain and atrial fibrillation with RVR. Acute bronchitis: treating with duonebs, prednisone, and azithromycin Chest pain: ACS ruled out with serial negative cardiac enzymes Atrial fibrillation: tachycardic this morning but after IV diltiazem is rate controlled, will increase metoprolol to 50mg daily, continue warfarin Dispo: likely home tomorrow.
[2017-12-16] MEDS: Azithromycin 250 MG Tab PO SCH (14:52)
[2017-12-16] MEDS ORDERED: Diltiazem 25 MG/5 ML SDV IVPUSH PRN (15:32)
[2017-12-16] MEDS: Doxepin 25 MG Cap PO SCH (21:00)
[2017-12-17] MEDS: Albuterol/Ipratropium 3.0-0.5 MG/3 ML Neb Soln NEB SCH ×3 (00:07→11:25)
[2017-12-17] MEDS: Sodium Chloride 0.9% 1,000 ML IV SCH ×2 (00:08→08:32)
[2017-12-17 06:14] LABS: CHLORIDE,CL 106 mmol/L (98-107); SODIUM,NA 139 mmol/L (136-145)
[2017-12-17] MEDS: atorvaSTATin 20 MG Tab PO SCH (08:34)
[2017-12-17] MEDS: FLUoxetine 20 MG Cap PO SCH (08:34)
[2017-12-17] MEDS: Metoprolol Succinate 25 MG Tab.ER PO SCH (08:35)
[2017-12-17] MEDS ORDERED: Magnesium Sulfate/Water 4 GM in Premix Bag 1 BAG IV ONE (08:36)
[2017-12-17] MEDS: predniSONE 20 MG Tab PO SCH (08:57)
--- NOTE | 2017-12-17 12:08 | CR ---
EXAM DATE: 12/15/17 PATIENT'S AGE: 82 Patient: LAURE NOLAND Facility: [place], [place] Site Site : [id number] Study: XRay Chest [id number] 10:39:55 PM Ordering Physician: ELAYNE WHITING MD Final Report: INDICATION: Pain, shortness of breath TECHNIQUE: Chest radiograph 1 view COMPARISON: 12/03/2017 FINDINGS: Mediastinum: The heart silhouette is normal in size and morphology. The mediastinum is normal in appearance. Severe elevation of the left hemidiaphragm is noted without significant interval change. Lungs: Both lungs are unremarkable in appearance. No sign of pleural effusion seen. No pneumothorax is identified. Bones and soft tissue: Unremarkable for age. Mild to moderate gaseous distention of the splenic flexure is noted. IMPRESSION: 1. Severe elevation of the left hemidiaphragm is noted without significant interval change. 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 Dictated by Sridhar Guaman MD @ 12/15/2017 10:53:06 PM Dictated by: Sridhar Guaman MD @ 12/15/2017 22:53:13 (Electronic Signature) Report Signed by Proxy. CAROLINE
--- NOTE | 2017-12-17 13:25 | PCM.DCSUM1 ---
Discharge Summary - Discharge Data Discharge Date: 12/17/17 Discharge Disposition: Home, Self-Care 01 Condition: Good - Discharge Diagnosis/Problem(s) (1) Bronchitis SNOMED Code(s): 08038483 ICD Code: J40 - BRONCHITIS, NOT SPECIFIED ACUTE OR CHRONIC Status: Acute Current Visit: Yes (2) Dyspnea SNOMED Code(s): 883923593 ICD Code: R06.00 - DYSPNEA, UNSPECIFIED Status: Acute Current Visit: Yes - Patient Instructions Diet: Regular Diet as Tolerated Activity: No Strenuous Activities, Rest and Relax Today Notify Provider of: Fever, Increased Pain, Swelling and Redness, Drainage, Nausea and/or Vomiting - Discharge Plan Prescriptions/Med Rec: Albuterol/Ipratropium [DuoNeb 3.0-0.5 MG/3 ML] 3 ml NEB Q4HR PRN #1 box PRN Reason: shortness of breath/wheezing Azithromycin 500 mg PO DAILY #5 tablet Dextromethorphan/guaiFENesin [Robitussin DM] 10 ml PO Q6H PRN #1 bottle PRN Reason: Cough Prednisone [IJD: Prednisone] 10 mg PO DAILY #30 tab Home Medications: Home Meds Calcium Carbonate [Calcium] 1 tab PO BID 12/15/17 [History] Doxepin [SINEquan] 50 mg PO DAILY 12/15/17 [History] FLUoxetine [PROzac] 20 mg PO DAILY 12/15/17 [History] Metoprolol Succinate [Toprol XL] 25 mg PO DAILY 12/15/17 [History] atorvaSTATin [Lipitor] 20 mg PO DAILY 12/15/17 [History] Albuterol/Ipratropium [DuoNeb 3.0-0.5 MG/3 ML] 3 ml NEB Q4HR PRN #1 box [Rx] Azithromycin 500 mg PO DAILY #5 tablet 12/17/17 [Rx] Dextromethorphan/guaiFENesin [Robitussin DM] 10 ml PO Q6H PRN #1 bottle [Rx] Prednisone [IJD: Prednisone] 10 mg PO DAILY #30 tab 12/17/17 [Rx] Warfarin [Coumadin] 5 mg PO DAILY #0 12/17/17 [Rx] Patient Handouts: Dextromethorphan; Guaifenesin oral solution, Chest Wall Pain , [id number], Acute Bronchitis, Adult, [id number], Azithromycin tablets, Albuterol; Ipratropium solution for inhalation, Prednisone tablets, Atrial Fibrillation, Bokm-os-Adey Referrals: [facility] [Outside] Elda Staples DO [Physician] - 12/24/17 3:45 pm - Patient Data Vitals - Most Recent: Last Vital Signs Temp 96.7 F 12/17/17 12:00 Pulse 108 H 12/17/17 12:00 Resp 18 12/17/17 12:45 BP 128/78 12/17/17 12:00 Pulse Ox 93 L 12/17/17 12:45 Weight - Most Recent: 66.224 kg I&O - Last 24 hours: Intake & Output 12/16/17 12/17/17 12/17/17 22:59 06:59 14:59 Intake Total 1098 1971 453 Output Total 700 Balance 1098 1271 453 Lab Results - Last 24 hrs: Laboratory Results - last 24 hr 12/17/17 12/17/17 12/17/17 Range/Units 05:45 05:45 05:45 WBC 10.18 (4.0-11.0) K/uL RBC 4.21 L (4.30-5.90) M/uL Hgb 12.9 (12.0-16.0) g/dL Hct 39.9 (36.0-46.0) % MCV 94.8 (80.0-98.0) fL MCH 30.6 (27.0-32.0) pg MCHC 32.3 (31.0-37.0) g/dL RDW Std Deviation 50.2 (28.0-62.0) fl RDW Coeff of Xiomy 15 (11.0-15.0) % Plt Count 124 L (150-400) K/uL MPV 9.80 (7.40-12.00) fL Neut % (Auto) 85.6 H (48.0-80.0) % Lymph % (Auto) 6.0 L (16.0-40.0) % [place] % (Auto) 8.3 (0.0-15.0) % Eos % (Auto) 0.0 (0.0-7.0) % Baso % (Auto) 0.1 (0.0-1.5) % Neut # (Auto) 8.7 H (1.4-5.7) K/uL Lymph # (Auto) 0.6 (0.6-2.4) K/uL [place] # (Auto) 0.9 H (0.0-0.8) K/uL Eos # (Auto) 0.0 (0.0-0.7) K/uL Baso # (Auto) 0.0 (0.0-0.1) K/uL Nucleated RBC % 0.0 /100WBC Nucleated RBCs # 0 K/uL INR 4.80 Sodium 139 (136-145) mmol/L Potassium 4.0 (3.5-5.1) mmol/L Chloride 106 (98-107) mmol/L Carbon Dioxide 25.0 (21.0-32.0) mmol/L BUN 12 (7.0-18.0) mg/dL Creatinine 0.8 (0.6-1.0) mg/dL Est Cr Clr Drug Dosing 49.88 mL/min Estimated GFR (MDRD) > 60.0 ml/min Glucose 152 H (74-106) mg/dL Calcium 8.3 L (8.5-10.1) mg/dL Magnesium (1.5-2.0) mg/dL 12/17/17 Range/Units 05:45 WBC (4.0-11.0) K/uL RBC (4.30-5.90) M/uL Hgb (12.0-16.0) g/dL Hct (36.0-46.0) % MCV (80.0-98.0) fL MCH (27.0-32.0) pg MCHC (31.0-37.0) g/dL RDW Std Deviation (28.0-62.0) fl RDW Coeff of Xiomy (11.0-15.0) % Plt Count (150-400) K/uL MPV (7.40-12.00) fL Neut % (Auto) (48.0-80.0) % Lymph % (Auto) (16.0-40.0) % [place] % (Auto) (0.0-15.0) % Eos % (Auto) (0.0-7.0) % Baso % (Auto) (0.0-1.5) % Neut # (Auto) (1.4-5.7) K/uL Lymph # (Auto) (0.6-2.4) K/uL [place] # (Auto) (0.0-0.8) K/uL Eos # (Auto) (0.0-0.7) K/uL Baso # (Auto) (0.0-0.1) K/uL Nucleated RBC % /100WBC Nucleated RBCs # K/uL INR Sodium (136-145) mmol/L Potassium (3.5-5.1) mmol/L Chloride (98-107) mmol/L Carbon Dioxide (21.0-32.0) mmol/L BUN (7.0-18.0) mg/dL Creatinine (0.6-1.0) mg/dL Est Cr Clr Drug Dosing mL/min Estimated GFR (MDRD) ml/min Glucose (74-106) mg/dL Calcium (8.5-10.1) mg/dL Magnesium 1.4 L (1.5-2.0) mg/dL HUEY Results - Last 24 hrs: Microbiology 12/15/17 22:15 Urine Culture - Final Urine, Clean Catch MIXED MELISSA >100,000 CFU/ML 12/15/17 21:25 Aerobic Blood Culture - Preliminary Blood - Venous - Lab Draw NO GROWTH AFTER 1 DAY Anaerobic Blood Culture - Preliminary NO GROWTH AFTER 1 DAY 12/15/17 21:25 Aerobic Blood Culture - Preliminary Blood - Venous NO GROWTH AFTER 1 DAY Anaerobic Blood Culture - Preliminary NO GROWTH AFTER 1 DAY Med Orders - Current: Current Medications Acetaminophen (Tylenol) 650 mg PO Q4H PRN PRN Reason: Pain (Mild 1-3)/fever Last Admin: 12/16/17 15:44 Dose: 650 mg Albuterol/Ipratropium (Duoneb 3.0-0.5 Mg/3 Ml) 3 ml NEB Q6HRRT [facility] Last Admin: 12/17/17 11:25 Dose: 3 ml Atorvastatin Calcium (Lipitor) 20 mg PO DAILY [facility] Last Admin: 12/17/17 08:34 Dose: 20 mg Azithromycin (Zithromax) 500 mg PO Q24H [facility] Last Admin: 12/16/17 14:52 Dose: 500 mg Diltiazem HCl (Diltiazem) 20 mg IVPUSH Q3H PRN PRN Reason: HR above 110 Last Admin: 12/16/17 15:50 Dose: 20 mg Doxepin HCl (Sinequan) 50 mg PO BEDTIME [facility] Last Admin: 12/16/17 21:00 Dose: 50 mg Fluoxetine HCl (Prozac) 20 mg PO DAILY [facility] Last Admin: 12/17/17 08:34 Dose: 20 mg Guaifenesin/Dextromethorphan (Robitussin Dm) 10 ml PO Q6H PRN PRN Reason: Cough Last Admin: 12/16/17 14:18 Dose: 10 ml Metoprolol Succinate (Toprol Xl) 50 mg PO DAILY [facility] Last Admin: 12/17/17 08:35 Dose: 50 mg Prednisone (Prednisone) 40 mg PO WITHBREAKFAST [facility] Last Admin: 12/17/17 08:57 Dose: 40 mg Sodium Chloride (Saline Flush) 10 ml FLUSH ASDIRECTED PRN PRN Reason: Keep Vein Open Sodium Chloride (Saline Flush) 2.5 ml FLUSH ASDIRECTED PRN PRN Reason: Keep Vein Open Warfarin Sodium (Coumadin Ask) 1 each PO DAILY@1400 [facility] Discontinued Medications Albuterol/Ipratropium (Duoneb 3.0-0.5 Mg/3 Ml) 3 ml NEB ONETIME ONE Stop: 12/15/17 21:16 Last Admin: 12/15/17 21:22 Dose: 3 ml Diltiazem HCl (Diltiazem) 20 mg IVPUSH ONETIME ONE Stop: 12/15/17 22:49 Last Admin: 12/15/17 22:52 Dose: 20 mg Diltiazem HCl (Diltiazem) Confirm Administered Dose 25 mg .ROUTE .STK-MED ONE Stop: 12/15/17 22:48 Last Admin: 12/15/17 22:53 Dose: Not Given Diltiazem HCl (Diltiazem) 10 mg IVPUSH STAT ONE Stop: 12/16/17 07:11 Last Admin: 12/16/17 07:31 Dose: 10 mg Fluoxetine HCl (Prozac) 25 mg PO DAILY [facility] Last Admin: 12/16/17 10:06 Dose: Not Given Sodium Chloride (Normal Saline) 1,000 mls @ 125 mls/hr IV STAT [facility] Last Admin: 12/15/17 21:25 Dose: 125 mls/hr Sodium Chloride (Normal Saline) 1,000 mls @ 125 mls/hr IV ASDIRECTED [facility] Last Admin: 12/17/17 08:32 Dose: 125 mls/hr Magnesium Sulfate 4 gm/ Premix 100 mls @ 50 mls/hr IV ONETIME ONE Stop: 12/17/17 10:35 Last Admin: 12/17/17 08:58 Dose: 50 mls/hr Metoprolol Succinate (Toprol Xl) 25 mg PO DAILY [facility] Last Admin: 12/16/17 10:25 Dose: 25 mg Metoprolol Succinate (Toprol Xl) 25 mg PO ONETIME ONE Stop: 12/16/17 14:18 Last Admin: 12/16/17 14:52 Dose: 25 mg Pantoprazole Sodium (Protonix Iv) 40 mg IVPUSH NOW ONE Stop: 12/15/17 23:42 Last Admin: 12/16/17 00:37 Dose: 40 mg Prednisone (Prednisone) 40 mg PO ONETIME ONE Stop: 12/15/17 23:42 Last Admin: 12/16/17 00:36 Dose: 40 mg Prednisone (Prednisone) 40 mg PO ONETIME ONE Stop: 12/16/17 14:20 Last Admin: 12/16/17 14:51 Dose: 40 mg Warfarin Sodium (Coumadin) 5 mg PO DAILY@1400 [facility] Last Admin: 12/16/17 14:19 Dose: 5 mg
[2017-12-17] MEDS: Azithromycin 250 MG Tab PO SCH (16:26)
--- NOTE | 2017-12-17 16:26 | PCM.PN ---
- General Info Date of Service: 12/17/17 Admission Dx/Problem (Free Text): Admission Diagnosis/Problem Admission Diagnosis/Problem Dyspnea Subjective Update: patient feeling well this morning and ready for discharge. Upon getting dressed for going home patient got tired and short of breath. Family at bedside concerned for her going home and requesting another night. No chest pain or palpitations. Dyspnea with exertion. Functional Status: Reports: Pain Controlled, Tolerating Diet, Ambulating, Urinating - Review of Systems General: Reports: No Symptoms. Denies: Fever Pulmonary: Reports: Shortness of Breath, Cough, Hemoptysis Cardiovascular: Reports: No Symptoms. Denies: Chest Pain, Palpitations, Edema Gastrointestinal: Reports: No Symptoms. Denies: Abdominal Pain, Nausea, Vomiting Genitourinary: Reports: No Symptoms. Denies: Dysuria, Frequency, Burning Musculoskeletal: Reports: No Symptoms Neurological: Reports: No Symptoms Psychiatric: Reports: No Symptoms - Patient Data Vitals - Most Recent: Last Vital Signs Temp 96.7 F 12/17/17 12:00 Pulse 108 H 12/17/17 12:00 Resp 18 12/17/17 12:45 BP 128/78 12/17/17 12:00 Pulse Ox 93 L 12/17/17 12:45 Weight - Most Recent: 66.224 kg I&O - Last 24 Hours: Intake & Output 12/17/17 12/17/17 12/17/17 06:59 14:59 22:59 Intake Total 1971 453 500 Output Total 700 600 Balance 1271 453 -100 Lab Results Last 24 Hours: Laboratory Results - last 24 hr 12/17/17 12/17/17 12/17/17 Range/Units 05:45 05:45 05:45 WBC 10.18 (4.0-11.0) K/uL RBC 4.21 L (4.30-5.90) M/uL Hgb 12.9 (12.0-16.0) g/dL Hct 39.9 (36.0-46.0) % MCV 94.8 (80.0-98.0) fL MCH 30.6 (27.0-32.0) pg MCHC 32.3 (31.0-37.0) g/dL RDW Std Deviation 50.2 (28.0-62.0) fl RDW Coeff of Xiomy 15 (11.0-15.0) % Plt Count 124 L (150-400) K/uL MPV 9.80 (7.40-12.00) fL Neut % (Auto) 85.6 H (48.0-80.0) % Lymph % (Auto) 6.0 L (16.0-40.0) % Baldwin % (Auto) 8.3 (0.0-15.0) % Eos % (Auto) 0.0 (0.0-7.0) % Baso % (Auto) 0.1 (0.0-1.5) % Neut # (Auto) 8.7 H (1.4-5.7) K/uL Lymph # (Auto) 0.6 (0.6-2.4) K/uL Baldwin # (Auto) 0.9 H (0.0-0.8) K/uL Eos # (Auto) 0.0 (0.0-0.7) K/uL Baso # (Auto) 0.0 (0.0-0.1) K/uL Nucleated RBC % 0.0 /100WBC Nucleated RBCs # 0 K/uL INR 4.80 Sodium 139 (136-145) mmol/L Potassium 4.0 (3.5-5.1) mmol/L Chloride 106 (98-107) mmol/L Carbon Dioxide 25.0 (21.0-32.0) mmol/L BUN 12 (7.0-18.0) mg/dL Creatinine 0.8 (0.6-1.0) mg/dL Est Cr Clr Drug Dosing 49.88 mL/min Estimated GFR (MDRD) > 60.0 ml/min Glucose 152 H (74-106) mg/dL Calcium 8.3 L (8.5-10.1) mg/dL Magnesium (1.5-2.0) mg/dL 12/17/17 Range/Units 05:45 WBC (4.0-11.0) K/uL RBC (4.30-5.90) M/uL Hgb (12.0-16.0) g/dL Hct (36.0-46.0) % MCV (80.0-98.0) fL MCH (27.0-32.0) pg MCHC (31.0-37.0) g/dL RDW Std Deviation (28.0-62.0) fl RDW Coeff of Xiomy (11.0-15.0) % Plt Count (150-400) K/uL MPV (7.40-12.00) fL Neut % (Auto) (48.0-80.0) % Lymph % (Auto) (16.0-40.0) % Baldwin % (Auto) (0.0-15.0) % Eos % (Auto) (0.0-7.0) % Baso % (Auto) (0.0-1.5) % Neut # (Auto) (1.4-5.7) K/uL Lymph # (Auto) (0.6-2.4) K/uL Baldwin # (Auto) (0.0-0.8) K/uL Eos # (Auto) (0.0-0.7) K/uL Baso # (Auto) (0.0-0.1) K/uL Nucleated RBC % /100WBC Nucleated RBCs # K/uL INR Sodium (136-145) mmol/L Potassium (3.5-5.1) mmol/L Chloride (98-107) mmol/L Carbon Dioxide (21.0-32.0) mmol/L BUN (7.0-18.0) mg/dL Creatinine (0.6-1.0) mg/dL Est Cr Clr Drug Dosing mL/min Estimated GFR (MDRD) ml/min Glucose (74-106) mg/dL Calcium (8.5-10.1) mg/dL Magnesium 1.4 L (1.5-2.0) mg/dL Dat Results Last 24 Hours: Microbiology 12/15/17 22:15 Urine Culture - Final Urine, Clean Catch MIXED MELISSA >100,000 CFU/ML 12/15/17 21:25 Aerobic Blood Culture - Preliminary Blood - Venous - Lab Draw NO GROWTH AFTER 1 DAY Anaerobic Blood Culture - Preliminary NO GROWTH AFTER 1 DAY 12/15/17 21:25 Aerobic Blood Culture - Preliminary Blood - Venous NO GROWTH AFTER 1 DAY Anaerobic Blood Culture - Preliminary NO GROWTH AFTER 1 DAY Med Orders - Current: Current Medications Acetaminophen (Tylenol) 650 mg PO Q4H PRN PRN Reason: Pain (Mild 1-3)/fever Last Admin: 12/16/17 15:44 Dose: 650 mg Albuterol/Ipratropium (Duoneb 3.0-0.5 Mg/3 Ml) 3 ml NEB Q6HRRT [facility] Last Admin: 12/17/17 11:25 Dose: 3 ml Atorvastatin Calcium (Lipitor) 20 mg PO DAILY [facility] Last Admin: 12/17/17 08:34 Dose: 20 mg Azithromycin (Zithromax) 500 mg PO Q24H [facility] Last Admin: 12/16/17 14:52 Dose: 500 mg Diltiazem HCl (Diltiazem) 20 mg IVPUSH Q3H PRN PRN Reason: HR above 110 Last Admin: 12/16/17 15:50 Dose: 20 mg Doxepin HCl (Sinequan) 50 mg PO BEDTIME [facility] Last Admin: 12/16/17 21:00 Dose: 50 mg Fluoxetine HCl (Prozac) 20 mg PO DAILY [facility] Last Admin: 12/17/17 08:34 Dose: 20 mg Guaifenesin/Dextromethorphan (Robitussin Dm) 10 ml PO Q6H PRN PRN Reason: Cough Last Admin: 12/16/17 14:18 Dose: 10 ml Metoprolol Succinate (Toprol Xl) 50 mg PO DAILY [facility] Last Admin: 12/17/17 08:35 Dose: 50 mg Prednisone (Prednisone) 40 mg PO WITHBREAKFAST [facility] Last Admin: 12/17/17 08:57 Dose: 40 mg Sodium Chloride (Saline Flush) 10 ml FLUSH ASDIRECTED PRN PRN Reason: Keep Vein Open Sodium Chloride (Saline Flush) 2.5 ml FLUSH ASDIRECTED PRN PRN Reason: Keep Vein Open Warfarin Sodium (Coumadin Ask) 1 each PO DAILY@1400 [facility] Discontinued Medications Albuterol/Ipratropium (Duoneb 3.0-0.5 Mg/3 Ml) 3 ml NEB ONETIME ONE Stop: 12/15/17 21:16 Last Admin: 12/15/17 21:22 Dose: 3 ml Diltiazem HCl (Diltiazem) 20 mg IVPUSH ONETIME ONE Stop: 12/15/17 22:49 Last Admin: 12/15/17 22:52 Dose: 20 mg Diltiazem HCl (Diltiazem) Confirm Administered Dose 25 mg .ROUTE .STK-MED ONE Stop: 12/15/17 22:48 Last Admin: 12/15/17 22:53 Dose: Not Given Diltiazem HCl (Diltiazem) 10 mg IVPUSH STAT ONE Stop: 12/16/17 07:11 Last Admin: 12/16/17 07:31 Dose: 10 mg Fluoxetine HCl (Prozac) 25 mg PO DAILY [facility] Last Admin: 12/16/17 10:06 Dose: Not Given Sodium Chloride (Normal Saline) 1,000 mls @ 125 mls/hr IV STAT [facility] Last Admin: 12/15/17 21:25 Dose: 125 mls/hr Sodium Chloride (Normal Saline) 1,000 mls @ 125 mls/hr IV ASDIRECTED [facility] Last Admin: 12/17/17 08:32 Dose: 125 mls/hr Magnesium Sulfate 4 gm/ Premix 100 mls @ 50 mls/hr IV ONETIME ONE Stop: 12/17/17 10:35 Last Admin: 12/17/17 08:58 Dose: 50 mls/hr Metoprolol Succinate (Toprol Xl) 25 mg PO DAILY [facility] Last Admin: 12/16/17 10:25 Dose: 25 mg Metoprolol Succinate (Toprol Xl) 25 mg PO ONETIME ONE Stop: 12/16/17 14:18 Last Admin: 12/16/17 14:52 Dose: 25 mg Pantoprazole Sodium (Protonix Iv) 40 mg IVPUSH NOW ONE Stop: 12/15/17 23:42 Last Admin: 12/16/17 00:37 Dose: 40 mg Prednisone (Prednisone) 40 mg PO ONETIME ONE Stop: 12/15/17 23:42 Last Admin: 12/16/17 00:36 Dose: 40 mg Prednisone (Prednisone) 40 mg PO ONETIME ONE Stop: 12/16/17 14:20 Last Admin: 12/16/17 14:51 Dose: 40 mg Warfarin Sodium (Coumadin) 5 mg PO DAILY@1400 [facility] Last Admin: 12/16/17 14:19 Dose: 5 mg - Exam General: Alert, Oriented, Cooperative Neck: Supple Lungs: Rhonchi. No: Normal Respiratory Effort (dyspnea with exertion) Cardiovascular: Regular Rate, Regular Rhythm GI/Abdominal Exam: Normal Bowel Sounds, Soft, Non-Tender, No Organomegaly, No Distention, No Abnormal Bruit, No Mass, Pelvis Stable Extremities: Normal Inspection, Normal Range of Motion, Non-Tender, No Pedal Edema, Normal Capillary Refill Neurological: No New Focal Deficit Psy/Mental Status: Alert, Normal Affect, Normal Mood - Problem List & Annotations (1) Bronchitis SNOMED Code(s): 96142652 Code(s): J40 - BRONCHITIS, NOT SPECIFIED ACUTE OR CHRONIC Status: Acute Current Visit: Yes (2) Dyspnea SNOMED Code(s): 634983775 Code(s): R06.00 - DYSPNEA, UNSPECIFIED Status: Acute Current Visit: Yes - Problem List Review Problem List Initiated/Reviewed/Updated: Yes - My Orders Last 24 Hours: My Active Orders 12/17/17 08:37 predniSONE 40 mg PO WITHBREAKFAST 12/17/17 11:44 Laundry Room Attendant Discontinue [Cardiac Monitoring Discontinue] [RC] Click to Edit 12/17/17 14:00 Warfarin Dosing [Coumadin Ask] 1 each PO DAILY@1400 - Plan Plan:: 82 yo female who presents with wheezing, chest pain and atrial fibrillation with RVR. 1. Acute bronchitis: Improved. Not requiring oxygen. Continue duonebs, prednisone, and azithromycin. Patient was set to go home and family feels she needs one more night due to dyspnea with exertion. Family asking about swing bed in [place]. Will consult PT and consult social work. 2. Chest pain: No further chest pain. ACS ruled out with serial negative cardiac enzymes 3. Atrial fibrillation: tachycardic resolved. Metoprolol XL increased to 50mg daily, INR 4.8, HOLD coumadin today, recheck in am. Dispo: likely home tomorrow.
[2017-12-17] MEDS: Doxepin 25 MG Cap PO SCH (21:39)
[2017-12-18] MEDS: Albuterol/Ipratropium 3.0-0.5 MG/3 ML Neb Soln NEB SCH ×5 (00:07→19:17)
[2017-12-18] MEDS: atorvaSTATin 20 MG Tab PO SCH (08:05)
[2017-12-18] MEDS: predniSONE 20 MG Tab PO SCH (08:05)
[2017-12-18] MEDS: Metoprolol Succinate 25 MG Tab.ER PO SCH (08:05)
[2017-12-18] MEDS: FLUoxetine 20 MG Cap PO SCH (08:06)
--- NOTE | 2017-12-18 12:10 | PCM.PN ---
- General Info Date of Service: 12/18/17 Admission Dx/Problem (Free Text): Admission Diagnosis/Problem Admission Diagnosis/Problem Dyspnea Subjective Update: Very short of breath with any activity. No chest pain or palpitations. No abdominal pain or urinary symptoms. Functional Status: Reports: Pain Controlled, Tolerating Diet, Ambulating, Urinating - Review of Systems General: Reports: Fatigue, Malaise HEENT: Reports: No Symptoms. Denies: Headaches, Sore Throat, Visual Changes Pulmonary: Reports: Shortness of Breath, Cough, Sputum, Wheezing Cardiovascular: Reports: No Symptoms. Denies: Chest Pain, Palpitations, Dyspnea on Exertion, Edema Gastrointestinal: Reports: No Symptoms. Denies: Abdominal Pain, Nausea, Vomiting Genitourinary: Reports: No Symptoms. Denies: Dysuria, Frequency, Burning Musculoskeletal: Reports: No Symptoms Skin: Reports: No Symptoms Neurological: Reports: No Symptoms Psychiatric: Reports: No Symptoms - Patient Data Vitals - Most Recent: Last Vital Signs Temp 98.0 F 12/18/17 07:56 Pulse 73 12/18/17 08:05 Resp 18 12/18/17 07:56 BP 148/110 H 12/18/17 08:05 Pulse Ox 91 L 12/18/17 07:56 Weight - Most Recent: 66.224 kg I&O - Last 24 Hours: Intake & Output 12/17/17 12/18/17 12/18/17 22:59 06:59 14:59 Intake Total 500 300 Output Total 600 500 Balance -100 -200 Lab Results Last 24 Hours: Laboratory Results - last 24 hr 12/18/17 12/18/17 12/18/17 Range/Units 05:05 05:05 05:05 WBC 9.10 (4.0-11.0) K/uL RBC 4.50 (4.30-5.90) M/uL Hgb 13.6 (12.0-16.0) g/dL Hct 42.0 (36.0-46.0) % MCV 93.3 (80.0-98.0) fL MCH 30.2 (27.0-32.0) pg MCHC 32.4 (31.0-37.0) g/dL RDW Std Deviation 48.9 (28.0-62.0) fl RDW Coeff of Xiomy 14 (11.0-15.0) % Plt Count 152 (150-400) K/uL MPV 10.10 (7.40-12.00) fL Neut % (Auto) 81.7 H (48.0-80.0) % Lymph % (Auto) 7.8 L (16.0-40.0) % Crane % (Auto) 10.4 (0.0-15.0) % Eos % (Auto) 0.0 (0.0-7.0) % Baso % (Auto) 0.1 (0.0-1.5) % Neut # (Auto) 7.4 H (1.4-5.7) K/uL Lymph # (Auto) 0.7 (0.6-2.4) K/uL Crane # (Auto) 1.0 H (0.0-0.8) K/uL Eos # (Auto) 0.0 (0.0-0.7) K/uL Baso # (Auto) 0.0 (0.0-0.1) K/uL Nucleated RBC % 0.0 /100WBC Nucleated RBCs # 0 K/uL INR 7.19 H* Sodium 137 (136-145) mmol/L Potassium 3.6 (3.5-5.1) mmol/L Chloride 103 (98-107) mmol/L Carbon Dioxide 26.9 (21.0-32.0) mmol/L BUN 18 (7.0-18.0) mg/dL Creatinine 0.9 (0.6-1.0) mg/dL Est Cr Clr Drug Dosing 44.34 mL/min Estimated GFR (MDRD) 59.8 ml/min Glucose 113 H (74-106) mg/dL Calcium 8.6 (8.5-10.1) mg/dL Dat Results Last 24 Hours: Microbiology 12/15/17 21:25 Aerobic Blood Culture - Preliminary Blood - Venous - Lab Draw NO GROWTH AFTER 2 DAYS Anaerobic Blood Culture - Preliminary NO GROWTH AFTER 2 DAYS 12/15/17 21:25 Aerobic Blood Culture - Preliminary Blood - Venous NO GROWTH AFTER 2 DAYS Anaerobic Blood Culture - Preliminary NO GROWTH AFTER 2 DAYS 12/15/17 22:15 Urine Culture - Final Urine, Clean Catch MIXED MELISSA >100,000 CFU/ML Med Orders - Current: Current Medications Acetaminophen (Tylenol) 650 mg PO Q4H PRN PRN Reason: Pain (Mild 1-3)/fever Last Admin: 12/16/17 15:44 Dose: 650 mg Albuterol/Ipratropium (Duoneb 3.0-0.5 Mg/3 Ml) 3 ml NEB Q6HRRT [facility] Last Admin: 12/18/17 11:41 Dose: 3 ml Atorvastatin Calcium (Lipitor) 20 mg PO DAILY [facility] Last Admin: 12/18/17 08:05 Dose: 20 mg Azithromycin (Zithromax) 500 mg PO Q24H [facility] Last Admin: 12/17/17 16:26 Dose: 500 mg Diltiazem HCl (Diltiazem) 20 mg IVPUSH Q3H PRN PRN Reason: HR above 110 Last Admin: 12/16/17 15:50 Dose: 20 mg Doxepin HCl (Sinequan) 50 mg PO BEDTIME [facility] Last Admin: 12/17/17 21:39 Dose: 50 mg Fluoxetine HCl (Prozac) 20 mg PO DAILY [facility] Last Admin: 12/18/17 08:06 Dose: 20 mg Guaifenesin/Dextromethorphan (Robitussin Dm) 10 ml PO Q6H PRN PRN Reason: Cough Last Admin: 12/16/17 14:18 Dose: 10 ml Metoprolol Succinate (Toprol Xl) 50 mg PO DAILY [facility] Last Admin: 12/18/17 08:05 Dose: 50 mg Sodium Chloride (Saline Flush) 10 ml FLUSH ASDIRECTED PRN PRN Reason: Keep Vein Open Sodium Chloride (Saline Flush) 2.5 ml FLUSH ASDIRECTED PRN PRN Reason: Keep Vein Open Warfarin Sodium (Coumadin Ask) 1 each PO DAILY@1400 [facility] Last Admin: 12/17/17 16:32 Dose: Not Given Discontinued Medications Albuterol/Ipratropium (Duoneb 3.0-0.5 Mg/3 Ml) 3 ml NEB ONETIME ONE Stop: 12/15/17 21:16 Last Admin: 12/15/17 21:22 Dose: 3 ml Diltiazem HCl (Diltiazem) 20 mg IVPUSH ONETIME ONE Stop: 12/15/17 22:49 Last Admin: 12/15/17 22:52 Dose: 20 mg Diltiazem HCl (Diltiazem) Confirm Administered Dose 25 mg .ROUTE .STK-MED ONE Stop: 12/15/17 22:48 Last Admin: 12/15/17 22:53 Dose: Not Given Diltiazem HCl (Diltiazem) 10 mg IVPUSH STAT ONE Stop: 12/16/17 07:11 Last Admin: 12/16/17 07:31 Dose: 10 mg Fluoxetine HCl (Prozac) 25 mg PO DAILY [facility] Last Admin: 12/16/17 10:06 Dose: Not Given Sodium Chloride (Normal Saline) 1,000 mls @ 125 mls/hr IV STAT [facility] Last Admin: 12/15/17 21:25 Dose: 125 mls/hr Sodium Chloride (Normal Saline) 1,000 mls @ 125 mls/hr IV ASDIRECTED [facility] Last Admin: 12/17/17 08:32 Dose: 125 mls/hr Magnesium Sulfate 4 gm/ Premix 100 mls @ 50 mls/hr IV ONETIME ONE Stop: 12/17/17 10:35 Last Admin: 12/17/17 08:58 Dose: 50 mls/hr Metoprolol Succinate (Toprol Xl) 25 mg PO DAILY [facility] Last Admin: 12/16/17 10:25 Dose: 25 mg Metoprolol Succinate (Toprol Xl) 25 mg PO ONETIME ONE Stop: 12/16/17 14:18 Last Admin: 12/16/17 14:52 Dose: 25 mg Pantoprazole Sodium (Protonix Iv) 40 mg IVPUSH NOW ONE Stop: 12/15/17 23:42 Last Admin: 12/16/17 00:37 Dose: 40 mg Prednisone (Prednisone) 40 mg PO ONETIME ONE Stop: 12/15/17 23:42 Last Admin: 12/16/17 00:36 Dose: 40 mg Prednisone (Prednisone) 40 mg PO ONETIME ONE Stop: 12/16/17 14:20 Last Admin: 12/16/17 14:51 Dose: 40 mg Prednisone (Prednisone) 40 mg PO WITHBREAKFAST [facility] Last Admin: 12/18/17 08:05 Dose: 40 mg Warfarin Sodium (Coumadin) 5 mg PO DAILY@1400 [facility] Last Admin: 12/16/17 14:19 Dose: 5 mg - Exam Quality Assessment: Supplemental Oxygen, DVT Prophylaxis General: Alert, Oriented, Cooperative, No Acute Distress Neck: Supple Lungs: Rhonchi, Wheezing. No: Normal Respiratory Effort (dyspnea with exertion) Cardiovascular: Regular Rate, Regular Rhythm GI/Abdominal Exam: Normal Bowel Sounds, Soft, Non-Tender, No Organomegaly, No Distention, No Abnormal Bruit, No Mass, Pelvis Stable Extremities: Normal Inspection, Normal Range of Motion, Non-Tender, No Pedal Edema, Normal Capillary Refill Neurological: No New Focal Deficit Psy/Mental Status: Alert, Normal Affect, Normal Mood - Problem List & Annotations (1) Bronchitis SNOMED Code(s): 81137182 Code(s): J40 - BRONCHITIS, NOT SPECIFIED ACUTE OR CHRONIC Status: Acute Current Visit: Yes (2) Dyspnea SNOMED Code(s): 011997484 Code(s): R06.00 - DYSPNEA, UNSPECIFIED Status: Acute Current Visit: Yes Qualifiers: Dyspnea type: dyspnea on exertion Qualified Code(s): R06.09 - Other forms of dyspnea (3) Supratherapeutic INR SNOMED Code(s): 984271851 Code(s): R79.1 - ABNORMAL COAGULATION PROFILE Status: Acute Current Visit : Yes (4) Fibrillation, atrial SNOMED Code(s): 61951671 Code(s): I48.91 - UNSPECIFIED ATRIAL FIBRILLATION Status: Chronic Current Visit: Yes Qualifiers: Atrial fibrillation type: paroxysmal Qualified Code(s): I48.0 - Paroxysmal atrial fibrillation (5) History of lymphoma SNOMED Code(s): 954574459 Code(s): Z85.79 - PRSNL HX OF MAL NEOPLM OF LYMPHOID, HEMATPOETC & REL TISS Status: Chronic Current Visit: Yes - Problem List Review Problem List Initiated/Reviewed/Updated: Yes - My Orders Last 24 Hours: My Active Orders 12/17/17 11:44 Water Quality Specialist Discontinue [Cardiac Monitoring Discontinue] [RC] Click to Edit 12/17/17 14:00 Warfarin Dosing [Coumadin Ask] 1 each PO DAILY@1400 12/17/17 16:22 Consult to Physical Therapy [PT Evaluation and Treatment] [CONS] Routine 12/17/17 16:25 Consult to Bb Shot Packer [CONS] Routine 12/18/17 11:44 Chest 2V [CR] Urgent 12/18/17 12:00 Echo 2D wo Cont [US] Urgent 12/18/17 12:03 Patient Status [ADT] Stat 12/18/17 18:00 methylPREDNISolone Sod Succ [Solu-MEDROL] 125 mg IVPUSH Q12H - Plan Plan:: 82 yo female who presents with wheezing, chest pain and atrial fibrillation with RVR. 1. Acute bronchitis: Dyspnea worse with eertion today. Will obtain CXR and ECHO today. Will change PRednisone to IV solumedrol 125 mg Q12hr. requiring 1 L NC oxygen with activity. Continue duonebsand azithromycin. Will change to INPATIENT status today due to worsening dypsnea and the start of IV steroid administration. Will consult PT and consult social work. 2. Supratherapeutic INR: 7.19 today, no active bleeding. Continue to HOLD coumadin. Recheck in am. Patient not eating much and likely secondary to antibiotic and steroid administration. 3. Atrial fibrillation: Stable. Monitor. Metoprolol XL 50mg daily VTE Prophylaxis: Coumadin, holding for now due to supratherpeutic INR. Dispo: Change to inpatient status.
--- NOTE | 2017-12-18 12:23 | CR ---
EXAMINATION: Two-view chest (PA and Lateral views). HISTORY: Dyspnea. FINDINGS: The trachea is midline. The heart is prominent in size. Stable elevation of the left hemidiaphragm. I ncreasing infiltrate noted within the lung bases bilaterally. No pleural effusion or pneumothorax. Osseous structures appear unremarkable. IMPRESSION: Increasing bibasilar infiltrate, developing pneumonia is not excluded.
[2017-12-18] MEDS: cefTRIAXone 1 GM in Premix Bag 1 BAG IV SCH (12:53)
[2017-12-18] MEDS: Azithromycin 250 MG Tab PO SCH (13:37)
[2017-12-18] MEDS: methylPREDNISolone Sodium Succinate 125 MG/2 ML SDV IVPUSH SCH (18:27)
[2017-12-18] MEDS: Doxepin 25 MG Cap PO SCH (22:08)
[2017-12-19] MEDS: Albuterol/Ipratropium 3.0-0.5 MG/3 ML Neb Soln NEB SCH ×5 (01:33→23:07)
[2017-12-19 05:50] LABS: CHLORIDE,CL 105 mmol/L (98-107); SODIUM,NA 139 mmol/L (136-145)
[2017-12-19] MEDS: methylPREDNISolone Sodium Succinate 125 MG/2 ML SDV IVPUSH SCH ×2 (06:48→17:02)
[2017-12-19] MEDS: FLUoxetine 20 MG Cap PO SCH (09:10)
[2017-12-19] MEDS: atorvaSTATin 20 MG Tab PO SCH (09:10)
[2017-12-19] MEDS: Metoprolol Succinate 25 MG Tab.ER PO SCH (09:11)
--- NOTE | 2017-12-19 09:57 | PCM.PN ---
- General Info Date of Service: 12/19/17 Admission Dx/Problem (Free Text): Admission Diagnosis/Problem Admission Diagnosis/Problem Dyspnea Subjective Update: Feeling better today, dyspnea improved since yesterday. No chest pain. Coughing continues, but is less productive. Feeling stronger than day before. Functional Status: Reports: Pain Controlled, Tolerating Diet, Ambulating, Urinating - Review of Systems HEENT: Reports: No Symptoms Pulmonary: Reports: Shortness of Breath (improved). Denies: Cough, Sputum Cardiovascular: Reports: No Symptoms. Denies: Chest Pain, Palpitations, Edema Gastrointestinal: Reports: No Symptoms. Denies: Abdominal Pain, Nausea, Vomiting Genitourinary: Reports: No Symptoms. Denies: Dysuria, Frequency, Burning Musculoskeletal: Reports: No Symptoms Skin: Reports: No Symptoms Neurological: Reports: No Symptoms Psychiatric: Reports: No Symptoms - Patient Data Vitals - Most Recent: Last Vital Signs Temp 97.4 F 12/19/17 08:00 Pulse 78 12/19/17 09:11 Resp 18 12/19/17 08:00 BP 134/80 12/19/17 09:11 Pulse Ox 95 12/19/17 08:00 Weight - Most Recent: 66.224 kg I&O - Last 24 Hours: Intake & Output 12/18/17 12/19/17 12/19/17 22:59 06:59 14:59 Intake Total 800 700 Output Total 1100 1100 Balance -300 -400 Lab Results Last 24 Hours: Laboratory Results - last 24 hr 12/18/17 12/19/17 12/19/17 Range/Units 05:05 04:58 04:58 WBC 5.96 (4.0-11.0) K/uL RBC 4.25 L (4.30-5.90) M/uL Hgb 12.7 (12.0-16.0) g/dL Hct 38.9 (36.0-46.0) % MCV 91.5 (80.0-98.0) fL MCH 29.9 (27.0-32.0) pg MCHC 32.6 (31.0-37.0) g/dL RDW Std Deviation 48.5 (28.0-62.0) fl RDW Coeff of Xiomy 14 (11.0-15.0) % Plt Count 145 L (150-400) K/uL MPV 10.20 (7.40-12.00) fL Neut % (Auto) 86.9 H (48.0-80.0) % Lymph % (Auto) 8.6 L (16.0-40.0) % [place]oshone % (Auto) 4.5 (0.0-15.0) % Eos % (Auto) 0.0 (0.0-7.0) % Baso % (Auto) 0.0 (0.0-1.5) % Neut # (Auto) 5.2 (1.4-5.7) K/uL Lymph # (Auto) 0.5 L (0.6-2.4) K/uL [place]oshone # (Auto) 0.3 (0.0-0.8) K/uL Eos # (Auto) 0.0 (0.0-0.7) K/uL Baso # (Auto) 0.0 (0.0-0.1) K/uL Nucleated RBC % 0.0 /100WBC Nucleated RBCs # 0 K/uL INR Sodium 139 (136-145) mmol/L Potassium 3.6 (3.5-5.1) mmol/L Chloride 105 (98-107) mmol/L Carbon Dioxide 25.3 (21.0-32.0) mmol/L BUN 17 (7.0-18.0) mg/dL Creatinine 0.7 (0.6-1.0) mg/dL Est Cr Clr Drug Dosing 57.01 mL/min Estimated GFR (MDRD) > 60.0 ml/min Glucose 138 H (74-106) mg/dL Calcium 8.5 (8.5-10.1) mg/dL Magnesium 1.7 (1.5-2.0) mg/dL B-Natriuretic Peptide 667 H (<100) PG/ML 12/19/17 Range/Units 04:58 WBC (4.0-11.0) K/uL RBC (4.30-5.90) M/uL Hgb (12.0-16.0) g/dL Hct (36.0-46.0) % MCV (80.0-98.0) fL MCH (27.0-32.0) pg MCHC (31.0-37.0) g/dL RDW Std Deviation (28.0-62.0) fl RDW Coeff of Xiomy (11.0-15.0) % Plt Count (150-400) K/uL MPV (7.40-12.00) fL Neut % (Auto) (48.0-80.0) % Lymph % (Auto) (16.0-40.0) % [place]oshone % (Auto) (0.0-15.0) % Eos % (Auto) (0.0-7.0) % Baso % (Auto) (0.0-1.5) % Neut # (Auto) (1.4-5.7) K/uL Lymph # (Auto) (0.6-2.4) K/uL Shoshone # (Auto) (0.0-0.8) K/uL Eos # (Auto) (0.0-0.7) K/uL Baso # (Auto) (0.0-0.1) K/uL Nucleated RBC % /100WBC Nucleated RBCs # K/uL INR 3.89 Sodium (136-145) mmol/L Potassium (3.5-5.1) mmol/L Chloride (98-107) mmol/L Carbon Dioxide (21.0-32.0) mmol/L BUN (7.0-18.0) mg/dL Creatinine (0.6-1.0) mg/dL Est Cr Clr Drug Dosing mL/min Estimated GFR (MDRD) ml/min Glucose (74-106) mg/dL Calcium (8.5-10.1) mg/dL Magnesium (1.5-2.0) mg/dL B-Natriuretic Peptide (<100) PG/ML Dat Results Last 24 Hours: Microbiology 12/15/17 21:25 Aerobic Blood Culture - Preliminary Blood - Venous - Lab Draw NO GROWTH AFTER 3 DAYS Anaerobic Blood Culture - Preliminary NO GROWTH AFTER 3 DAYS 12/15/17 21:25 Aerobic Blood Culture - Preliminary Blood - Venous NO GROWTH AFTER 3 DAYS Anaerobic Blood Culture - Preliminary NO GROWTH AFTER 3 DAYS Med Orders - Current: Current Medications Acetaminophen (Tylenol) 650 mg PO Q4H PRN PRN Reason: Pain (Mild 1-3)/fever Last Admin: 12/16/17 15:44 Dose: 650 mg Albuterol/Ipratropium (Duoneb 3.0-0.5 Mg/3 Ml) 3 ml NEB Q6HRRT [facility] Last Admin: 12/19/17 06:44 Dose: 3 ml Atorvastatin Calcium (Lipitor) 20 mg PO DAILY [facility] Last Admin: 12/19/17 09:10 Dose: 20 mg Azithromycin (Zithromax) 500 mg PO Q24H [facility] Last Admin: 12/18/17 13:37 Dose: 500 mg Diltiazem HCl (Diltiazem) 20 mg IVPUSH Q3H PRN PRN Reason: HR above 110 Last Admin: 12/16/17 15:50 Dose: 20 mg Doxepin HCl (Sinequan) 50 mg PO BEDTIME [facility] Last Admin: 12/18/17 22:08 Dose: 50 mg Fluoxetine HCl (Prozac) 20 mg PO DAILY [facility] Last Admin: 12/19/17 09:10 Dose: 20 mg Guaifenesin/Dextromethorphan (Robitussin Dm) 10 ml PO Q6H PRN PRN Reason: Cough Last Admin: 12/16/17 14:18 Dose: 10 ml Ceftriaxone Sodium/Dextrose 1 (gm/ Premix) 50 mls @ 100 mls/hr IV Q24H [facility] Last Admin: 12/18/17 12:53 Dose: 100 mls/hr Methylprednisolone Sodium Succinate (Solu-Medrol) 125 mg IVPUSH Q12H [facility] Last Admin: 12/19/17 06:48 Dose: 125 mg Metoprolol Succinate (Toprol Xl) 50 mg PO DAILY [facility] Last Admin: 12/19/17 09:11 Dose: 50 mg Sodium Chloride (Saline Flush) 10 ml FLUSH ASDIRECTED PRN PRN Reason: Keep Vein Open Sodium Chloride (Saline Flush) 2.5 ml FLUSH ASDIRECTED PRN PRN Reason: Keep Vein Open Warfarin Sodium (Coumadin Ask) 1 each PO DAILY@1400 [facility] Last Admin: 12/18/17 13:39 Dose: Not Given Warfarin Sodium (Coumadin) 5 mg PO ONETIME ONE Stop: 12/19/17 14:01 Discontinued Medications Albuterol/Ipratropium (Duoneb 3.0-0.5 Mg/3 Ml) 3 ml NEB ONETIME ONE Stop: 12/15/17 21:16 Last Admin: 12/15/17 21:22 Dose: 3 ml Diltiazem HCl (Diltiazem) 20 mg IVPUSH ONETIME ONE Stop: 12/15/17 22:49 Last Admin: 12/15/17 22:52 Dose: 20 mg Diltiazem HCl (Diltiazem) Confirm Administered Dose 25 mg .ROUTE .STK-MED ONE Stop: 12/15/17 22:48 Last Admin: 12/15/17 22:53 Dose: Not Given Diltiazem HCl (Diltiazem) 10 mg IVPUSH STAT ONE Stop: 12/16/17 07:11 Last Admin: 12/16/17 07:31 Dose: 10 mg Fluoxetine HCl (Prozac) 25 mg PO DAILY [facility] Last Admin: 12/16/17 10:06 Dose: Not Given Sodium Chloride (Normal Saline) 1,000 mls @ 125 mls/hr IV STAT [facility] Last Admin: 12/15/17 21:25 Dose: 125 mls/hr Sodium Chloride (Normal Saline) 1,000 mls @ 125 mls/hr IV ASDIRECTED [facility] Last Admin: 12/17/17 08:32 Dose: 125 mls/hr Magnesium Sulfate 4 gm/ Premix 100 mls @ 50 mls/hr IV ONETIME ONE Stop: 12/17/17 10:35 Last Admin: 12/17/17 08:58 Dose: 50 mls/hr Metoprolol Succinate (Toprol Xl) 25 mg PO DAILY [facility] Last Admin: 12/16/17 10:25 Dose: 25 mg Metoprolol Succinate (Toprol Xl) 25 mg PO ONETIME ONE Stop: 12/16/17 14:18 Last Admin: 12/16/17 14:52 Dose: 25 mg Pantoprazole Sodium (Protonix Iv) 40 mg IVPUSH NOW ONE Stop: 12/15/17 23:42 Last Admin: 12/16/17 00:37 Dose: 40 mg Prednisone (Prednisone) 40 mg PO ONETIME ONE Stop: 12/15/17 23:42 Last Admin: 12/16/17 00:36 Dose: 40 mg Prednisone (Prednisone) 40 mg PO ONETIME ONE Stop: 12/16/17 14:20 Last Admin: 12/16/17 14:51 Dose: 40 mg Prednisone (Prednisone) 40 mg PO WITHBREAKFAST [facility] Last Admin: 12/18/17 08:05 Dose: 40 mg Warfarin Sodium (Coumadin) 5 mg PO DAILY@1400 [facility] Last Admin: 12/16/17 14:19 Dose: 5 mg - Exam General: Alert, Oriented, Cooperative, No Acute Distress Neck: Supple Lungs: Normal Respiratory Effort, Crackles (R mid and lowe lung base) Cardiovascular: Regular Rate, Irregular Rhythm GI/Abdominal Exam: Normal Bowel Sounds, Soft, Non-Tender, No Organomegaly, No Distention, No Abnormal Bruit, No Mass, Pelvis Stable Extremities: Normal Inspection, Normal Range of Motion, Non-Tender, No Pedal Edema, Normal Capillary Refill Neurological: No New Focal Deficit Psy/Mental Status: Alert, Normal Affect, Normal Mood - Problem List & Annotations (1) Bronchitis SNOMED Code(s): 20799838 Code(s): J40 - BRONCHITIS, NOT SPECIFIED ACUTE OR CHRONIC Status: Acute Current Visit: Yes (2) Dyspnea SNOMED Code(s): 256231453 Code(s): R06.00 - DYSPNEA, UNSPECIFIED Status: Acute Current Visit: Yes Qualifiers: Dyspnea type: dyspnea on exertion Qualified Code(s): R06.09 - Other forms of dyspnea (3) Supratherapeutic INR SNOMED Code(s): 545438241 Code(s): R79.1 - ABNORMAL COAGULATION PROFILE Status: Acute Current Visit : Yes (4) Fibrillation, atrial SNOMED Code(s): 73748691 Code(s): I48.91 - UNSPECIFIED ATRIAL FIBRILLATION Status: Chronic Current Visit: Yes Qualifiers: Atrial fibrillation type: paroxysmal Qualified Code(s): I48.0 - Paroxysmal atrial fibrillation (5) History of lymphoma SNOMED Code(s): 615012649 Code(s): Z85.79 - PRSNL OF [facility] LYMPHOID, HEMATPOETC & REL TISS Status: Chronic Current Visit: Yes - Problem List Review Problem List Initiated/Reviewed/Updated: Yes - My Orders Last 24 Hours: My Active Orders 12/18/17 12:00 Echo Comp wo Cont [US] Urgent 12/18/17 12:03 Patient Status [ADT] Stat 12/18/17 12:30 cefTRIAXone [Rocephin in Dextrose,Iso-Osm 1 GM/50 ML] 1 gm Premix Bag 1 bag IV Q24H 12/18/17 18:00 methylPREDNISolone Sod Succ [Solu-MEDROL] 125 mg IVPUSH Q12H 12/19/17 08:24 Consult to Physical Therapy [PT Evaluation and Treatment] [CONS] Routine 12/19/17 14:00 Warfarin [Coumadin] 5 mg PO ONETIME ONE 12/20/17 05:11 BASIC METABOLIC PANEL,BMP [CHEM] AM CBC WITH AUTO DIFF [HEME] AM INR,PT,PROTHROMBIN TIME [COAG] AM MAGNESIUM [CHEM] AM 12/21/17 05:11 BASIC METABOLIC PANEL,BMP [CHEM] AM CBC WITH AUTO DIFF [HEME] AM INR,PT,PROTHROMBIN TIME [COAG] AM MAGNESIUM [CHEM] AM - Plan Plan:: 82 yo female who presents with wheezing, chest pain and atrial fibrillation with RVR. 1. Acute bronchitis with suspected PNA: Dyspnea improved today, ambulating well without significant dyspnea or the need for oxygen. CXR revealed developing pneumonia, Rocephin added to Azithromycin. ECHO pending, CHF less likely. Continue Solumedrol 125 mg IV Q12hr. Continue duonebs and Azithromycin. Labwork remains WNL. Will consult PT and consult social work. 2. Supratherapeutic INR: Resolving. 3.89 today. Continue Coumadin 5 mg today. Recheck in am. 3. Atrial fibrillation: Stable. Monitor. Metoprolol XL 50mg daily VTE Prophylaxis: Coumadin, holding for now due to supratherpeutic INR. Dispo: Possible home in am.
[2017-12-19] MEDS: cefTRIAXone 1 GM in Premix Bag 1 BAG IV SCH (11:30)
[2017-12-19] MEDS: Azithromycin 250 MG Tab PO SCH (13:38)
[2017-12-19] MEDS ORDERED: Warfarin 5 MG Tab PO ONE (14:00)
[2017-12-19] MEDS: Doxepin 25 MG Cap PO SCH (21:01)
[2017-12-20] MEDS: methylPREDNISolone Sodium Succinate 125 MG/2 ML SDV IVPUSH SCH (05:41)
[2017-12-20] MEDS: Albuterol/Ipratropium 3.0-0.5 MG/3 ML Neb Soln NEB SCH ×2 (06:06→11:06)
[2017-12-20 06:27] LABS: CHLORIDE,CL 105 mmol/L (98-107); SODIUM,NA 141 mmol/L (136-145)
[2017-12-20] MEDS: atorvaSTATin 20 MG Tab PO SCH (08:05)
[2017-12-20] MEDS: FLUoxetine 20 MG Cap PO SCH (08:05)
[2017-12-20] MEDS: Metoprolol Succinate 25 MG Tab.ER PO SCH (08:05)
[2017-12-20] MEDS: cefTRIAXone 1 GM in Premix Bag 1 BAG IV SCH (11:36)
--- NOTE | 2017-12-20 12:45 | PCM.DCSUM1 ---
Discharge Summary - Hospital Course Brief History: 82 yo female with pmh of nonhodgkin's lymphoma, atrial fibrillation on anticoagulation who presents to the ED with complaint of cough and wheezing. She also reported an episode neck pain that radiates to the arm. She reports epigastric pain as well. She does have some shortness of breath with walking. She denies any fevers or blood in stool. In the ED she was noted to have a heart rate of 120-130s bpm which decreased to the 80s with 20mg of diltiazem. - Discharge Data Discharge Date: 12/20/17 Discharge Disposition: Home, Self-Care 01 Condition: Good - Discharge Diagnosis/Problem(s) (1) Bronchitis SNOMED Code(s): 83563767 ICD Code: J40 - BRONCHITIS, NOT SPECIFIED ACUTE OR CHRONIC Status: Acute (2) Dyspnea SNOMED Code(s): 784337860 ICD Code: R06.00 - DYSPNEA, UNSPECIFIED Status: Acute Qualifiers: Dyspnea type: dyspnea on exertion Qualified Code(s): R06.09 - Other forms of dyspnea (3) Supratherapeutic INR SNOMED Code(s): 690293939 ICD Code: R79.1 - ABNORMAL COAGULATION PROFILE Status: Acute (4) Fibrillation, atrial SNOMED Code(s): 38244386 ICD Code: I48.91 - UNSPECIFIED ATRIAL FIBRILLATION Status: Chronic Qualifiers: Atrial fibrillation type: paroxysmal Qualified Code(s): I48.0 - Paroxysmal atrial fibrillation (5) History of lymphoma SNOMED Code(s): 932673207 ICD Code: Z85.79 - PRSNL HX OF [facility] OF LYMPHOID, HEMATPOETC & REL TISS Status: Chronic (6) Pneumonia SNOMED Code(s): 224988521 ICD Code: J18.9 - PNEUMONIA, UNSPECIFIED ORGANISM Status: Acute Qualifiers: Pneumonia type: due to unspecified organism Laterality: bilateral Lung location: lower lobe of lung Qualified Code(s): J18.1 - Lobar pneumonia, unspecified organism - Patient Summary/Data Consults: Consultations 12/17/17 16:25 Consult to [facility] [CONS] Routine 12/19/17 08:24 Consult to Physical Therapy [PT Evaluation and Treatment] [CONS] Routine - Patient Instructions Diet: Regular Diet as Tolerated Activity: No Strenuous Activities, Rest and Relax Today Notify Provider of: Fever, Increased Pain, Swelling and Redness, Drainage, Nausea and/or Vomiting - Discharge Plan Prescriptions/Med Rec: Albuterol/Ipratropium [DuoNeb 3.0-0.5 MG/3 ML] 3 ml NEB Q4HR PRN #1 box PRN Reason: shortness of breath/wheezing Cefdinir 300 mg PO BID #14 capsule Dextromethorphan/guaiFENesin [Robitussin DM] 10 ml PO Q6H PRN #1 bottle PRN Reason: Cough Metoprolol Succinate [Toprol XL 50mg] 50 mg PO DAILY #30 tab.er Prednisone [IJD: Prednisone] 10 mg PO DAILY #30 tab Home Medications: Home Meds Calcium Carbonate [Calcium] 1 tab PO BID 12/15/17 [History] Doxepin [SINEquan] 50 mg PO DAILY 12/15/17 [History] FLUoxetine [PROzac] 20 mg PO DAILY 12/15/17 [History] atorvaSTATin [Lipitor] 20 mg PO DAILY 12/15/17 [History] Albuterol/Ipratropium [DuoNeb 3.0-0.5 MG/3 ML] 3 ml NEB Q4HR PRN #1 box [Rx] Dextromethorphan/guaiFENesin [Robitussin DM] 10 ml PO Q6H PRN #1 bottle [Rx] Metoprolol Succinate [Toprol XL 50mg] 50 mg PO DAILY #30 tab.er 12/17/17 [Rx] Prednisone [IJD: Prednisone] 10 mg PO DAILY #30 tab 12/17/17 [Rx] Cefdinir 300 mg PO BID #14 capsule 12/20/17 [Rx] Warfarin [Coumadin] 5 mg PO DAILY #0 12/20/17 [Rx] Patient Handouts: Metoprolol tablets, Cefdinir capsules, Dextromethorphan; Guaifenesin oral solution, Chest Wall Pain, [id number], Acute Bronchitis, Adult, [id number], Albuterol; Ipratropium solution for inhalation, Prednisone tablets, Atrial Fibrillation, [id number] Referrals: [facility] [Outside] Elda Staples DO [Physician] - 12/28/17 2:30 pm - Discharge Summary/Plan Comment DC Time >30 min.: No Discharge Summary/Plan Comment: Discharge Diagnoses: CAP Bronchitis Afib Dyspnea Hx Non-hodgkins Lymphoma Meg was admitted and initially treated for Bronchitis with Prednisone and Azithromycin, during her stay some dyspnea worsened and she felt she wasn't improving. Repeat CXR was completed and revealed suspected developing bilateral lower lob infiltrates. She was made inpatient and treatment was broadened with Rocephin and Solumedrol was added. She then continued to improve and no longer required oxygen. She continues to have some intermittent dyspnea but is up ambulating without significant dyspnea as she had prior and sats remain above 90 %. She reports her last PET scan did show lung involvement from her lymphoma. On admission, she was noted to be in Afib RVR, treated with Diltiazem IV and then Metoprolol was increased to 50 mg daily, which maintained HR well and she had no further RVR episodes. During her stay her INR elevated to 7.19, without bleeding Coumadin was held and it then decreased after 2 days of holding Coumadin to 3.8. Her dose was restarted, which then her INR was 6.3 today, still no bleeding noted. She will be discharged home today with increasing her Metoprolol XL to 50 mg daily. She will HOLD coumadin until SundayDecember 23 then restart at 2.5 mg. She will have INR check in [place] and they will then call Dr tSaples, her PCP regarding the level and further instructions for Coumadin dosing. She will be sent home on Cefdinir 300 mg BID for 7 more days for her CAP and Prednisone taper as well. She is to follow up with Dr Staples next week to insure she continues to be improving. She was also given nebulizer for rent for dyspnea, she and daughter report it is very hard for her to manipulate inhalers and use then properly. She is to return to ED or clinic if concerns should arise. - General Info Date of Service: 12/20/17 Admission Dx/Problem (Free Text: Admission Diagnosis/Problem Admission Diagnosis/Problem Dyspnea Subjective Update: Feeling much better today, just returned from a shower. No chest pain or worsening dyspnea. She reports the SOB continues intermittently but has improved significantly and she feels she will be able to get around the house easily. She denies any other concerns. Functional Status: Reports: Pain Controlled, Tolerating Diet, Ambulating, Urinating - Review of Systems General: Reports: No Symptoms. Denies: Fever, Weakness, Fatigue HEENT: Reports: Post Nasal Drip Pulmonary: Reports: Shortness of Breath (intermittent but improved.), Cough. Denies: Sputum, Hemoptysis, Wheezing Cardiovascular: Reports: No Symptoms. Denies: Chest Pain Gastrointestinal: Reports: No Symptoms. Denies: Abdominal Pain, Nausea, Vomiting Genitourinary: Reports: No Symptoms Musculoskeletal: Reports: No Symptoms Skin: Reports: No Symptoms Neurological: Reports: No Symptoms Psychiatric: Reports: No Symptoms - Patient Data Vitals - Most Recent: Last Vital Signs Temp 97.1 F 12/20/17 11:46 Pulse 91 12/20/17 11:46 Resp 18 12/20/17 11:46 BP 152/82 H 12/20/17 11:46 Pulse Ox 93 L 12/20/17 11:46 Weight - Most Recent: 66.224 kg I&O - Last 24 hours: Intake & Output 12/19/17 12/20/17 12/20/17 22:59 06:59 14:59 Intake Total 1300 600 50 Output Total 950 600 Balance 350 0 50 Lab Results - Last 24 hrs: Laboratory Results - last 24 hr 12/20/17 12/20/17 12/20/17 Range/Units 05:05 05:05 05:05 WBC 7.62 (4.0-11.0) K/uL RBC 4.15 L (4.30-5.90) M/uL Hgb 12.6 (12.0-16.0) g/dL Hct 38.1 (36.0-46.0) % MCV 91.8 (80.0-98.0) fL MCH 30.4 (27.0-32.0) pg MCHC 33.1 (31.0-37.0) g/dL RDW Std Deviation 48.3 (28.0-62.0) fl RDW Coeff of Xiomy 14 (11.0-15.0) % Plt Count 168 (150-400) K/uL MPV 9.90 (7.40-12.00) fL Neut % (Auto) 89.9 H (48.0-80.0) % Lymph % (Auto) 5.8 L (16.0-40.0) % Cooper % (Auto) 4.3 (0.0-15.0) % Eos % (Auto) 0.0 (0.0-7.0) % Baso % (Auto) 0.0 (0.0-1.5) % Neut # (Auto) 6.9 H (1.4-5.7) K/uL Lymph # (Auto) 0.4 L (0.6-2.4) K/uL Cooper # (Auto) 0.3 (0.0-0.8) K/uL Eos # (Auto) 0.0 (0.0-0.7) K/uL Baso # (Auto) 0.0 (0.0-0.1) K/uL Nucleated RBC % 0.0 /100WBC Nucleated RBCs # 0 K/uL INR 6.32 Sodium 141 (136-145) mmol/L Potassium 3.8 (3.5-5.1) mmol/L Chloride 105 (98-107) mmol/L Carbon Dioxide 27.1 (21.0-32.0) mmol/L BUN 21 H (7.0-18.0) mg/dL Creatinine 0.8 (0.6-1.0) mg/dL Est Cr Clr Drug Dosing 49.88 mL/min Estimated GFR (MDRD) > 60.0 ml/min Glucose 143 H (74-106) mg/dL Calcium 8.8 (8.5-10.1) mg/dL Magnesium 1.7 (1.5-2.0) mg/dL HUEY Results - Last 24 hrs: Microbiology 12/15/17 21:25 Aerobic Blood Culture - Preliminary Blood - Venous - Lab Draw NO GROWTH AFTER 4 DAYS Anaerobic Blood Culture - Preliminary NO GROWTH AFTER 4 DAYS 12/15/17 21:25 Aerobic Blood Culture - Preliminary Blood - Venous NO GROWTH AFTER 4 DAYS Anaerobic Blood Culture - Preliminary NO GROWTH AFTER 4 DAYS Med Orders - Current: Current Medications Acetaminophen (Tylenol) 650 mg PO Q4H PRN PRN Reason: Pain (Mild 1-3)/fever Last Admin: 12/16/17 15:44 Dose: 650 mg Albuterol/Ipratropium (Duoneb 3.0-0.5 Mg/3 Ml) 3 ml NEB Q6HRRT [facility] Last Admin: 04/05/18 11:06 Dose: 3 ml Atorvastatin Calcium (Lipitor) 20 mg PO DAILY [facility] Last Admin: 12/20/17 08:05 Dose: 20 mg Azithromycin (Zithromax) 500 mg PO Q24H [facility] Last Admin: 12/19/17 13:38 Dose: 500 mg Diltiazem HCl (Diltiazem) 20 mg IVPUSH Q3H PRN PRN Reason: HR above 110 Last Admin: 12/16/17 15:50 Dose: 20 mg Doxepin HCl (Sinequan) 50 mg PO BEDTIME [facility] Last Admin: 12/19/17 21:01 Dose: 50 mg Fluoxetine HCl (Prozac) 20 mg PO DAILY [facility] Last Admin: 12/20/17 08:05 Dose: 20 mg Guaifenesin/Dextromethorphan (Robitussin Dm) 10 ml PO Q6H PRN PRN Reason: Cough Last Admin: 12/16/17 14:18 Dose: 10 ml Ceftriaxone Sodium/Dextrose 1 (gm/ Premix) 50 mls @ 100 mls/hr IV Q24H [facility] Last Admin: 12/20/17 11:36 Dose: 100 mls/hr Methylprednisolone Sodium Succinate (Solu-Medrol) 125 mg IVPUSH Q12H [facility] Last Admin: 12/20/17 05:41 Dose: 125 mg Metoprolol Succinate (Toprol Xl) 50 mg PO DAILY [facility] Last Admin: 12/20/17 08:05 Dose: 50 mg Sodium Chloride (Saline Flush) 10 ml FLUSH ASDIRECTED PRN PRN Reason: Keep Vein Open Sodium Chloride (Saline Flush) 2.5 ml FLUSH ASDIRECTED PRN PRN Reason: Keep Vein Open Warfarin Sodium (Coumadin Ask) 1 each PO DAILY@1400 [facility] Last Admin: 12/19/17 15:12 Dose: Not Given Discontinued Medications Albuterol/Ipratropium (Duoneb 3.0-0.5 Mg/3 Ml) 3 ml NEB ONETIME ONE Stop: 12/15/17 21:16 Last Admin: 12/15/17 21:22 Dose: 3 ml Diltiazem HCl (Diltiazem) 20 mg IVPUSH ONETIME ONE Stop: 12/15/17 22:49 Last Admin: 12/15/17 22:52 Dose: 20 mg Diltiazem HCl (Diltiazem) Confirm Administered Dose 25 mg .ROUTE .STK-MED ONE Stop: 12/15/17 22:48 Last Admin: 12/15/17 22:53 Dose: Not Given Diltiazem HCl (Diltiazem) 10 mg IVPUSH STAT ONE Stop: 12/16/17 07:11 Last Admin: 12/16/17 07:31 Dose: 10 mg Fluoxetine HCl (Prozac) 25 mg PO DAILY [facility] Last Admin: 12/16/17 10:06 Dose: Not Given Sodium Chloride (Normal Saline) 1,000 mls @ 125 mls/hr IV STAT [facility] Last Admin: 12/15/17 21:25 Dose: 125 mls/hr Sodium Chloride (Normal Saline) 1,000 mls @ 125 mls/hr IV ASDIRECTED [facility] Last Admin: 12/17/17 08:32 Dose: 125 mls/hr Magnesium Sulfate 4 gm/ Premix 100 mls @ 50 mls/hr IV ONETIME ONE Stop: 12/17/17 10:35 Last Admin: 12/17/17 08:58 Dose: 50 mls/hr Metoprolol Succinate (Toprol Xl) 25 mg PO DAILY [facility] Last Admin: 12/16/17 10:25 Dose: 25 mg Metoprolol Succinate (Toprol Xl) 25 mg PO ONETIME ONE Stop: 12/16/17 14:18 Last Admin: 12/16/17 14:52 Dose: 25 mg Pantoprazole Sodium (Protonix Iv) 40 mg IVPUSH NOW ONE Stop: 12/15/17 23:42 Last Admin: 12/16/17 00:37 Dose: 40 mg Prednisone (Prednisone) 40 mg PO ONETIME ONE Stop: 12/15/17 23:42 Last Admin: 12/16/17 00:36 Dose: 40 mg Prednisone (Prednisone) 40 mg PO ONETIME ONE Stop: 12/16/17 14:20 Last Admin: 12/16/17 14:51 Dose: 40 mg Prednisone (Prednisone) 40 mg PO WITHBREAKFAST [facility] Last Admin: 12/18/17 08:05 Dose: 40 mg Warfarin Sodium (Coumadin) 5 mg PO DAILY@1400 [facility] Last Admin: 12/16/17 14:19 Dose: 5 mg Warfarin Sodium (Coumadin) 5 mg PO ONETIME ONE Stop: 12/19/17 14:01 Last Admin: 12/19/17 13:38 Dose: 5 mg - Exam Quality Assessment: Denies: Supplemental Oxygen General: Reports: Alert, Oriented, Cooperative, No Acute Distress Neck: Reports: Supple Lungs: Reports: Normal Respiratory Effort, Rhonchi (r base, greatly improved since admission.) Cardiovascular: Reports: Regular Rate, Irregular Rhythm GI/Abdominal Exam: Normal Bowel Sounds, Soft, Non-Tender, No Organomegaly, No Distention, No Abnormal Bruit, No Mass, Pelvis Stable Back Exam: Reports: Normal Inspection, Full Range of Motion Extremities: Normal Inspection, Normal Range of Motion, Non-Tender, No Pedal Edema, Normal Capillary Refill Skin: Reports: Warm, Dry, Intact Neurological: Reports: No New Focal Deficit Psy/Mental Status: Reports: Alert, Normal Affect, Normal Mood
--- NOTE | 2017-12-20 16:04 | ECHO ---
EXAM DATE: 12/18/17 PATIENT'S AGE: 82 The echocardiogram report can be seen in this patient's EMR (Electronic Medical Record) in the Reports section. The report has also been scanned into PACs. CAROLINE
== END 2017-12-20 14:00 | disposition home or self-care (01) | DRG 195 ==
LOC: MW.ED 21:03 → MW.MS 23:03 → OBSVTOIN 12-18 12:03 → MW.MS 12-18 13:17
PROVIDERS: ADMIT Internal Medicine; ATTEND Internal Medicine
DX: R06.00 Dyspnea, unspecified (principal); I48.91 Unspecified atrial fibrillation; R06.02 Shortness of breath; E86.0 Dehydration; R53.1 Weakness; J18.9 Pneumonia, unspecified organism; R79.1 Abnormal coagulation profile; I48.0 Paroxysmal atrial fibrillation; M54.2 Cervicalgia; R10.13 Epigastric pain; H54.7 Unspecified visual loss; E78.00 Pure hypercholesterolemia, unspecified; I10 Essential (primary) hypertension; Z85.72 Personal history of non-Hodgkin lymphomas; Z79.01 Long term (current) use of anticoagulants; Z79.899 Other long term (current) drug therapy; Z85.828 Personal history of other malignant neoplasm of skin; Z90.710 Acquired absence of both cervix and uterus
CPT/HCPCS: 36415 ×4; 71045; 71046; 80048 ×3; 80053; 81001; 83735; 83880 ×2; 84484 ×3; 85025 ×3; 85027; 85610 ×3; 87040 ×2; 87086; 87804 ×2; 93005; 94640 ×7; 96361; 96374; 97161; 99285; A9270 ×21; C9113; J3475; J3490 ×2; J7040 ×5; 93306; 96375; 96376; 97530-GP; 99283; G0378; J0696; J2930